=== PATIENT | female | born 1960 | race Caucasian/White ===

== ENCOUNTER → 2017-02-20 | Outpatient (CLI) | payer MEDICAID | LOC: FIMAGING 07:52 | PROVIDERS: ATTEND Internal Medicine | DX: M16.0 Bilateral primary osteoarthritis of hip (principal); M51.36 Other intervertebral disc degeneration, lumbar region; M48.061 Spinal stenosis, lumbar region without neurogenic claudication ==

== ENCOUNTER 2017-07-04 18:22 | Emergency (ER) | payer MEDICAID ==
[2017-07-04 19:09] VITALS: BP 153/99; PULSE 64; RESP 16; TEMP 97.9; O2SAT 95
[2017-07-04] MEDS ORDERED: ACETAMINOPHEN 325 MG TAB PO ONE (19:09)
--- NOTE | 2017-07-04 19:22 | EDPHY ---
H & P Time Seen by Provider: 07/04/17 18:57 HPI/ROS: This patient has known history of severe osteoarthritis her hips with her orthopedic physician, Dr. Velasco in [place] associated with [facility] recommends hip replacement surgery. She is trying to become more physically fit prior to hip surgery. 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 She had steroid shots just over 1 month ago to the hips with significant improvement in her pain and reports that she gets partial relief at nighttime from hydrocodone. She takes Advil during the day and had a 600 mg dose 4 hr prior to arrival. She reports minimal improvement from Advil and currently reports the pain is 7/10 in the right hip and mild to moderate in the left hip. Smoking Status: Never smoked Physical Exam: Physical Exam Vital signs are normal. General: Pleasant obese 56-year-old female No acute distress Eyes: Pupils equal and react to light. Extraocular motions are intact. Lungs: No respiratory distress. Cardiac: Brisk capillary refill is intact throughout. Pulses are 2+ and symmetric in the affected extremity. Skin: No rash or pallor. Extremities: Bilateral hip tenderness. No for shortening of either leg. She has pain with passive range of motion right more than left hip. Back: Mild lumbar paraspinous tenderness. No midline tenderness. Neuro: Alert and oriented x3. She maintains normal light touch sensory exam bilateral lower extremities and 5/5 strength in great toe dorsiflexion plantar flexion bilaterally with no sensorimotor deficits appreciated on exam. Initial differential diagnosis: Progression of osteoarthritis, sciatica, hip strain, pathologic fracture Constitutional: Initial Vital Signs Temperature (C) 36.6 C 07/04/17 19:05 Heart Rate 64 07/04/17 19:05 Respiratory Rate 16 07/04/17 19:05 Blood Pressure 153/99 H 07/04/17 19:05 O2 Sat (%) 95 07/04/17 19:05 O2 Delivery Mode Room Air Allergies/Adverse Reactions: No Known Allergies Allergy (Verified 07/04/17 19:08) Home Medications: Medication Instructions Recorded ESCITALOPRAM OXALATE [Lexapro] 20 mg PO 10/12/11 Losartan Potassium [Cozaar] 25 mg PO DAILY 09/20/12 Amlodipine Besylate 07/04/17 Hydrocodone-Acetamin 5-325 mg 07/04/17 Hydrocodone/APAP 5/325 [[place] 1 - 2 tab PO Q4PRN PRN #20 tab 07/04/17 5/325 (*)] Lidocaine [Lidoderm] 1 each TP Q12 PRN #20 adh..patch 07/04/17 Methocarbamol [Robaxin 750 mg (*)] 750 - 1,500 mg PO QID PRN #30 tab 07/04/17 MDM/Departure - MDM Diagnostics: Hip x-rays: Severe DJD with [id number] a degenerative changes by my interpretation Imaging Results: Imaging Impressions Hip X-Ray 07/04/17 19:09 Impression: Severe degenerative change in both hips. Imaging: I viewed and interpreted images myself Medications Given: Discontinued Medications Acetaminophen (Tylenol) 975 mg PO EDNOW ONE Stop: 07/04/17 19:10 Last Admin: 07/04/17 19:14 Dose: 975 mg ED Course/Re-evaluation: Tylenol p.o.. Patient has to drive so she declines any other analgesics at this time I counseled regarding her severe degenerative disease in her hip suggesting that she follow up soon with her orthopedic physician to plan for hip replacement. Will try her with Lidoderm patches, continue ibuprofen, add methocarbamol, continue hydrocodone/Tylenol. Answered all of her questions prior to discharge home. - Depart Disposition: Home, Routine, Self-Care Clinical Impression: Osteoarthritis of hips, bilateral Qualifiers: Osteoarthritis type: primary Qualified Code(s): M16.0 - Bilateral primary osteoarthritis of hip Condition: Good Instructions: Osteoarthritis (ED) Additional Instructions: Diagnosis: Osteoarthritis of the hip Plan: Continue ibuprofen-600 mg per 6 hr as needed Add Tylenol during the day, methocarbamol and Lidoderm patches. Continue your hydrocodone at night if needed. No driving, alcohol work on hydrocodone Try to lose weight as discussed. Follow up with the orthopedic physician a step for further evaluation Prescriptions: Hydrocodone/APAP 5/325 [[place] 5/325 (*)] 1 - 2 tab PO Q4PRN PRN #20 tab PRN Reason: Pain Lidocaine [Lidoderm] 1 each TP Q12 PRN #20 adh..patch PRN Reason: hip pain Methocarbamol [Robaxin 750 mg (*)] 750 - 1,500 mg PO QID PRN #30 tab PRN Reason: Muscle Spasms Referrals: DARA GILL [Other] - As per Instructions
== END 2017-07-04 19:52 | disposition home or self-care (01) ==
LOC: CED 18:22
DX: M16.0 Bilateral primary osteoarthritis of hip (principal)
CPT/HCPCS: 73502-PO

== ENCOUNTER 2017-09-20 18:23 | Emergency (ER) | payer MEDICAID ==
--- NOTE | 2017-09-20 18:39 | CPEKG ---
Heart Rate: 75 RR Interval: 800 P-R Interval: 132 QRSD Interval: 94 QT Interval: 364 QTC Interval: 407 P [place]: 29 QRS Davidson: 33 T Wave [place]: 23 EKG Severity - BORDERLINE ECG - EKG Impression: SINUS RHYTHM Electronically Signed By: Gilbert King 20-Sep-2017 21:33:04
[2017-09-20] MEDS ORDERED: ASPIRIN 81 MG CHEWABLE TAB PO ONE (18:48)
[2017-09-20] MEDS ORDERED: MAG HYDROX/AL HYDROX/SIMETH 30 ML UDCUP PO ONE (18:49)
[2017-09-20 19:04] LABS: PLATELET COUNT 319 10^3/uL (150-400)
[2017-09-20] MEDS ORDERED: IOPAMIDOL (ISOVUE 370) 100 ML BTL IV ONE (19:35)
--- NOTE | 2017-09-20 20:29 | CPEKG ---
Heart Rate: 71 RR Interval: 845 P-R Interval: 144 QRSD Interval: 96 QT Interval: 388 QTC Interval: 422 P [place]: 23 QRS [place]: 25 T Wave [place]: 20 EKG Severity - NORMAL ECG - EKG Impression: SINUS RHYTHM Electronically Signed By: Gilbert King 20-Sep-2017 21:32:29
--- NOTE | 2017-09-20 20:44 | EDPHY ---
H & P Stated Complaint: Cp off and on for 3 days Time Seen by Provider: 09/20/17 18:37 HPI/ROS: This patient has had intermittent chest pain for 3 days. She describes it as a mild ache, substernal location. She occasionally has arm pains left arm as well but notes no correlation between the timing of the arm pain and the chest pain. Peak intensity is 5/10, shortly prior to arrival she had 3/10 pain that has resolved shortly after arrival here tonight. She estimates longus duration of her pain is been 2 hr. She does not recall having this type of pain before. She admits that she is anxious currently about potential cardiac source of pain in part because her sister had an CO recently. She came in by private vehicle for evaluation of the symptoms. ROS: Constitutional: Mild fatigue. No fevers or other constitutional symptoms HEENT: No URI symptoms or other complaints new line neuro: Minimal headache similar to prior headaches in a bandlike distribution on off for the past 2 days but none currently. No numbness or tingling. Pulmonary: No shortness of breath. No cough. No pleuritic pain Cardiovascular: No heart palpitations. No leg swelling. GI: No belly pain. She does have heartburn and belching increased over the past few days. : No complaints integumentary: No diaphoresis or other complaints Endocrine: No complaints Complete review of symptoms otherwise negative Source: Patient Exam Limitations: No limitations - Personal History Tetanus Vaccine Date: 2011 - Medical/Surgical History PMH: Hypertension Normal cholesterol Hx Asthma: No Hx Chronic Respiratory Disease: No Hx Diabetes: No Hx Cardiac Disease: No Hx Renal Disease: No Hx Cirrhosis: No Hx Alcoholism: No Hx HIV/AIDS: No Hx Splenectomy or Spleen Trauma: No Other PMH: HTN, ANXIETY, ALLERGIES, C-SECT, FINGER ORIF, OSTEOARTHRITIS - Family History Significant Family History: Heart disease (Her 45-year-old sister had an CO recently) - Social History Smoking Status: Never smoked Alcohol Use: Rarely Drug Use: None - Physical Exam Exam: Vital signs normal exception of borderline hypertension initially at 140/86 and Slightly low O2 sat on room air of 94% General Appearance: Alert, no distress. Eyes: Pupils equal and round no pallor or injection. ENT, Mouth: Mucous membranes moist. Respiratory: There are no retractions, lungs are clear to auscultation. Cardiovascular: Regular rate and rhythm. No murmur gallop or rub. No peripheral edema. No JVD. Gastrointestinal: Abdomen is soft and nontender, no masses, bowel sounds normal. Neurological: GCS 15 with no focal deficits. Skin: Warm and dry, no rashes. Musculoskeletal: Neck is supple nontender. Extremities are symmetrical, full range of motion. Psychiatric: Mood and affect are normal DIFFERENTIAL DIAGNOSIS: After history and physical exam differential diagnosis was considered for myocardial ischemic disease, GERD, PE, pneumothorax, pneumonia Constitutional: Initial Vital Signs Temperature (C) 36.4 C 09/20/17 18:35 Heart Rate 83 09/20/17 18:35 Respiratory Rate 16 09/20/17 18:35 Blood Pressure 140/86 H 09/20/17 18:35 O2 Sat (%) 94 09/20/17 18:35 O2 Delivery Mode Room Air Allergies/Adverse Reactions: No Known Allergies Allergy (Verified 09/20/17 18:33) Home Medications: Medication Instructions Recorded ESCITALOPRAM OXALATE [Lexapro] 20 mg PO 10/12/11 Losartan Potassium [Cozaar] 25 mg PO DAILY 09/20/12 Amlodipine Besylate 07/04/17 Cetirizine HCl [Zyrtec] 10 mg PO 09/20/17 Pantoprazole Sodium [Protonix 40mg 40 mg PO DAILY #20 tab 09/20/17 (*)] Medical Decision Making - Diagnostics EKG Interpretation: 12 lead EKG performed shortly after arrival at 6:37 p.m. Indication chest pain Sinus rhythm 75 Intervals: P R of 132, QRS of 94, QTC of 392 [place]: P of 29, QRS of 33, T of 23 ST segments: Normal throughout Overall assessment sinus rhythm without acute ischemic abnormalities by my interpretation. This EKG is compared to a prior EKG dated 09/20/2012 and appreciate no interval change. Repeat EKG performed at 8:28 p.m. To evaluate for interval change shows sinus rhythm at 71. Intervals: Normal [place]: Normal ST segments: Normal Overall assessment normal EKG without interval change my interpretation. Please refer to trace master for complete read. Imaging Results: Imaging Impressions Chest/Thorax CTA 09/20/17 19:27 Impression: No evidence for pulmonary embolic disease. Results called to Dr. Gilbert King at 7:55 PM. General information for patients regarding this examination can be found at [email or web address]. If you have questions or comments about this report, please contact me at (hospital) or [phone] (cell). ED Course/Re-evaluation: IV, monitor, aspirin p. O. Maalox p. O. Patient's chest pain resolved prior to receiving the Maalox. She remained chest pain free for the duration of her time here in the emergency department A review of her historical findings the back of risk factors give her a heart score of 2-very low risk for acute ischemic cardiac disease. Patient labs revealed a normal CBC, normal metabolic panel and troponin however her D-dimer was mildly elevated 0.53. CT angio chest was then performed which ruled out pulmonary embolism or pulmonary pathology. Counseled regarding this. Given her background risk factors of family history and hypertension, recommend that she follow up with Dr. Kayce Alves as an outpatient and will treat her for GERD in the meantime with Protonix and Maalox. Patient understands the need to return emergency department should she develop any worsening of her symptoms are onset of new symptoms. I think the patient had symptoms attributable to GERD in the setting of her sister with recent CO was apprehensive and came in appropriately to eat be evaluated for her chest pain but has no red flag findings that would suggest acute cardiac ischemic disease, pulmonary embolism, pneumothorax or other acute cardiopulmonary pathology. - Data Points Laboratory Results: Laboratory Results 09/20/17 18:53 09/20/17 18:53 09/20/17 09/20/17 09/20/17 18:53 18:53 18:53 WBC 9.00 10^3/uL 10^3/uL (3.80-9.50) RBC 4.63 10^6/uL 10^6/uL (4.18-5.33) Hgb 14.3 g/dL g/dL (12.6-16.3) Hct 41.0 % % (38.0-47.0) MCV 88.6 fL fL (81.5-99.8) MCH 30.9 pg pg (27.9-34.1) MCHC 34.9 g/dL g/dL (32.4-36.7) RDW 13.6 % % (11.5-15.2) Plt Count 319 10^3/uL 10^3/uL (150-400) MPV 9.2 fL fL (8.7-11.7) Neut % (Auto) 67.9 % % (39.3-74.2) Lymph % (Auto) 25.4 % % (15.0-45.0) Keith % (Auto) 5.3 % % (4.5-13.0) Eos % (Auto) 0.4 % L % (0.6-7.6) Baso % (Auto) 0.7 % % (0.3-1.7) Nucleat RBC Rel Count 0.0 % % (0.0-0.2) Absolute Neuts (auto) 6.10 10^3/uL 10^3/uL (1.70-6.50) Absolute Lymphs (auto) 2.29 10^3/uL 10^3/uL (1.00-3.00) Absolute Monos (auto) 0.48 10^3/uL 10^3/uL (0.30-0.80) Absolute Eos (auto) 0.04 10^3/uL 10^3/uL (0.03-0.40) Absolute Basos (auto) 0.06 10^3/uL 10^3/uL (0.02-0.10) Absolute Nucleated RBC 0.00 10^3/uL 10^3/uL (0-0.01) Immature Gran % 0.3 % % (0.0-1.1) Immature Gran # 0.03 10^3/uL 10^3/uL (0.00-0.10) D-Dimer 0.53 ug/mLFEU H ug/mLFEU (0.00-0.50) Sodium 133 mEq/L L mEq/L (135-145) Potassium 4.1 mEq/L mEq/L (3.3-5.0) Chloride 98 mEq/L mEq/L (97-110) Carbon Dioxide 23 mEq/l mEq/l (22-31) Anion Gap 12 mEq/L mEq/L (8-16) BUN 9 mg/dL mg/dL (7-23) Creatinine 0.5 mg/dL L mg/dL (0.6-1.0) Estimated GFR > 60 Glucose 102 mg/dL H mg/dL (70-100) Calcium 9.7 mg/dL mg/dL (8.5-10.4) Troponin I < 0.012 ng/mL ng/mL (0.000-0.034) Medications Given: Discontinued Medications Al Hydroxide/Mg Hydroxide (Maalox Susp) 30 ml PO EDNOW ONE Stop: 09/20/17 18:50 Last Admin: 09/20/17 19:06 Dose: 30 ml Aspirin (Aspirin) 324 mg PO EDNOW ONE Stop: 09/20/17 18:49 Last Admin: 09/20/17 19:06 Dose: 324 mg Departure - Departure Disposition: Home, Routine, Self-Care Clinical Impression: Chest pain Qualifiers: Chest pain type: unspecified Qualified Code(s): R07.9 - Chest pain, unspecified Condition: Good Instructions: Chest Pain (ED) Additional Instructions: Diagnosis: Chest pain Your EKG, heart enzymes are normal tonight. He had a normal CT angio of her chest as well with no evidence of blood clotting. You may have acid reflux causing her symptoms. However, he warranted follow up with polysomnography tech as an outpatient given her family history of sister with a heart attack at a young age. Plan: Maalox for discomfort if needed Restart joint Protonix-an acid darlyn tonight as well. Continue this daily. Call your primary care physician for a follow-up appoint for recheck. Also call Dr. Alves to arrange follow-up appointment for further evaluation of chest pains Return emergency department for any significant worsening despite the treatment plan. Referrals: Yumiko Pena MD [Primary Care Provider] - As per Instructions Kayce Alves MD [Medical Doctor] - As per Instructions Prescriptions: Pantoprazole Sodium [Protonix 40mg (*)] 40 mg PO DAILY #20 tab
[2017-09-20 20:59] VITALS: BP 144/77
== END 2017-09-20 20:58 | disposition home or self-care (01) ==
LOC: CED 18:23
DX: R07.9 Chest pain, unspecified (principal); I10 Essential (primary) hypertension
CPT/HCPCS: 71275-PO; 80048-PO; 84484-PO; 85025-PO; 85378-PO; Q9967

== ENCOUNTER 2018-03-31 15:27 | Inpatient (IN) | payer MEDICAID ==
[2018-03-31] MEDS ORDERED: NS 1,000 ML IV ONE (15:42)
[2018-03-31] MEDS ORDERED: ASPIRIN 81 MG CHEWABLE TAB PO ONE (15:51)
[2018-03-31] MEDS ORDERED: ONDANSETRON 4 MG/2 ML VIAL IVP ONE (15:52)
[2018-03-31] MEDS ORDERED: NITROGLYCERIN 0.4 MG BTL SL PRN (16:02)
[2018-03-31] MEDS: POTASSIUM Cl (KCl) 100 ML IV SCH ×3 (16:49→19:18)
[2018-03-31] MEDS ORDERED: ACETAMINOPHEN 500 MG TAB PO ONE (16:59)
--- NOTE | 2018-03-31 17:02 | EDPHY ---
H & P Stated Complaint: SOB for 1.5 weeks, generalized abd discomfort, CRUZ Time Seen by Provider: 03/31/18 15:42 HPI/ROS: This patient reports a chief complaint of fatigue and shortness of breath. She explains that starting about 10 days ago she developed a dry intermittent cough , is vague tightness in her chest that slightly worsens with a deep breath, dyspnea and fatigue. She waited to come in because she presumed that she would start improving but in fact her symptoms have steadily and gradually worsened prompting her visit today. She drove herself here by private vehicle. She notes that the dyspnea and chest tightness worsened a bit with exertion-going up stairs. No other exacerbating factors. Currently shortly after arrival she described 4/10 chest tightness when she takes a deeper breath. She describes anorexia in addition and has lingering nausea most of the time over the 10 day course. ROS: Constitutional: No fevers or chills. She complains of generalized fatigue. She describes poor sleep is well she that she attributes to the chest tightness and chronic hip pain. She states the dyspnea also bothers her sleep HEENT: She describes mild nasal congestion. Neuro: She has a 4/10 to 7/10 frontal headache similar to prior headaches-achy in nature. No confusion. No focal numbness tingling weakness. Pulmonary: No hemoptysis. No sputum production Cardiovascular: She denies any lightheadedness. She has no lower extremity swelling or calf pain. GI: She reports anorexia. She has been drinking fluids however. She reports having bowel movements less frequently than usual over the past week but still having bowel movements. : No dysuria frequency urgency. No vaginal discharge. No flank pain. Musculoskeletal: She has moderate chronic hip pain bilaterally from osteoarthritis that is unchanged. She takes ibuprofen for this with partial relief. She also partial relief of her headache from ibuprofen last dose of ibuprofen was 4 hr prior to arrival -600 mg 10 point review of symptoms is performed and otherwise negative with exception of pertinent positives and negatives listed in HPI and ROS Source: Patient Exam Limitations: No limitations - Personal History Tetanus Vaccine Date: 2011 - Medical/Surgical History Hx Asthma: No Hx Chronic Respiratory Disease: No Hx Diabetes: No Hx Cardiac Disease: No Hx Renal Disease: No Hx Cirrhosis: No Hx Alcoholism: No Hx HIV/AIDS: No Hx Splenectomy or Spleen Trauma: No Other PMH: HTN, ANXIETY, seaonal ALLERGIES, C-SECT, FINGER ORIF, OSTEOARTHRITIS - Family History Significant Family History: Heart disease (Patient's sister had an DE at age 45) - Social History Smoking Status: Never smoked Alcohol Use: Other (She usually has 1 2 glasses of white wine a night but has not had any alcohol over the past week due to feeling poorly) Drug Use: Marijuana (The patient admits using a marijuana vaporizer pen at bedtime to try to help with sleep over the course of the past 3 weeks but has not used over the past week due to feeling poorly.) - Physical Exam Exam: Vital signs notable for tachypnea of 22 and hypoxia to 80%. General Appearance: Alert, no distress. Eyes: Pupils equal and round no pallor or injection. ENT, Mouth: Mucous membranes dry. Respiratory: Left-sided rales detectable anteriorly Cardiovascular: Regular rate and rhythm. No murmur gallop rub. No peripheral edema. No calf swelling or tenderness Gastrointestinal: Abdomen is soft and nontender, no masses, bowel sounds normal. Neurological: GCS of 15 Skin: Warm and dry, no rashes. Musculoskeletal: Neck is supple nontender. Extremities are symmetrical, full range of motion. Psychiatric: Mood and affect are normal DIFFERENTIAL DIAGNOSIS: After history and physical exam differential diagnosis was considered for pulmonary embolism, pneumonia, myocardial ischemic disease, viral pneumonitis, metabolic disarray Constitutional: Initial Vital Signs Temperature (C) 36.6 C 03/31/18 15:32 Heart Rate 84 03/31/18 15:32 Respiratory Rate 26 H 03/31/18 15:32 Blood Pressure 137/72 H 03/31/18 15:32 O2 Sat (%) 88 L 03/31/18 15:32 O2 Delivery Mode Nasal Cannula O2 (L/minute) 2 Allergies/Adverse Reactions: No Known Allergies Allergy (Verified 03/31/18 15:39) Home Medications: Medication Instructions Recorded ESCITALOPRAM OXALATE [Lexapro] 20 mg PO 10/12/11 Losartan Potassium [Cozaar] 25 mg PO DAILY 09/20/12 Amlodipine Besylate 07/04/17 Cetirizine HCl [Zyrtec] 10 mg PO 09/20/17 Medical Decision Making - Diagnostics EKG Interpretation: 12 lead EKG performed shortly after arrival indication chest tightness rule out coronary syndrome 12 lead EKG performed at 3:38 p.m. Reveals sinus rhythm at 78 Intervals: Normal throughout [place]: P of 16, QRS of 11, T of -20 ST segments: Patient has T-wave inversions in lead V2 and V3 and lateral ST depression V4 through V5 of 2 mm Overall assessment sinus rhythm with LVH with repolarization abnormalities verses heart strain, versus ischemia or electrolyte abnormality Imaging Results: Imaging Impressions Chest X-Ray 03/31/18 16:00 Impression: Left upper lobe pneumonia. Aspiration? Chest/Thorax CTA 03/31/18 17:05 Impression: 1. No evidence of pulmonary emboli using CT protocol although there is suboptimal enhancement of the pulmonary arterial system secondary to increased cardiac output and possible Valsalva. 2. Moderate consolidation/pneumonia left upper lobe and lingula. 3. Compressive atelectatic change suspected at the right lung base. There may be superimposed patchy consolidation as well. Findings discussed with Gilbert King M.D. at 18:03 hour, 03/31/2018. Two view chest x-ray: Left sided infiltrate, right-sided atelectasis, possible effusion by my interpretation Imaging: Discussed imaging studies w/ call center support consultant Radiologist, I viewed and interpreted images myself (Plain x-rays) ED Course/Re-evaluation: IV, monitor, aspirin 324 chewed After review of chest x-ray patient is treated with a g of ceftriaxone for pneumonia Zithromax 500 mg p.o. In addition [place] review [place] [id number], potassium of 2.2 confirmed by i-STAT potassium also of 2.2, normal troponin, elevated D-dimer, normal venous lactate Patient started on IV potassium replacement for hypokalemia CT angio chest is negative for any significant pulmonary embolism per Dr. Black. Findings are consistent with pneumonia including some reactive lymph nodes. Discussion: Patient with pneumonia and hypoxia warranting admission. I counseled patient regarding this. She also has significant hypokalemia likely from aggressive hydration with water and poor appetite. I think that her subtle T-wave abnormalities on her EKG are attributable to her hypokalemia. Her chest tightness that she ride with resolved without intervention shortly after arrival and she denied any further chest pain while in the emergency department. Presentation is consistent with sepsis without severe sepsis and she remained stable while in the emergency department. I spoke with Dr. Jaden Purcell, hospitalist at [facility] accepts the patient for transfer to PCU bed The patient remains stable for the duration of her emergency department course on nasal cannula supplemental O2. She received 10 mEq of potassium IV and 20 mEq p.o. Answered all her questions prior to transfer via ALS to [facility] PCU - Data Points Laboratory Results: 03/31/18 03/31/18 03/31/18 16:50 16:28 15:55 POC Hgb 14.6 gm/dL gm/dL (12.6-16.3) POC Hct 43 % % (38-47) PT INR APTT POC Sodium 135 mEq/L mEq/L (135-145) POC Potassium 2.2 mEq/L L* mEq/L (3.3-5.0) POC Chloride 103 mEq/L mEq/L (97-110) POC Total CO2 POC BUN 23 mg/dL mg/dL (7-23) POC Creatinine 0.7 mg/dL mg/dL (0.6-1.0) POC Glucose 97 mg/dL mg/dL (70-100) POC Lactic Acid Jony 1.1 mmol/L mmol/L (0.7-2.1) POC Calcium POC Total Bilirubin POC AST POC ALT POC Alk Phosphatase POC Troponin I 0.01 ng/mL ng/mL (0.00-0.08) POC Total Protein POC Albumin 03/31/18 03/31/18 15:53 15:45 POC Hgb POC Hct PT Pending INR Pending APTT Pending POC Sodium 132 mEq/L L mEq/L (135-145) POC Potassium 2.2 mEq/L L* mEq/L (3.3-5.0) POC Chloride 102.0 mEq/L mEq/L (97-110) POC Total CO2 17 mEq/L L mEq/L (22-31) POC BUN 21 mg/dL mg/dL (7-23) POC Creatinine 0.8 mg/dL mg/dL (0.6-1.0) POC Glucose 110 mg/dL H mg/dL (70-100) POC Lactic Acid Jony POC Calcium 9.2 mg/dL mg/dL (8.5-10.4) POC Total Bilirubin 0.5 mg/dL mg/dL (0.1-1.4) POC AST 50 IU/L H IU/L (14-46) POC ALT 42 IU/L IU/L (9-52) POC Alk Phosphatase 132 IU/L H IU/L (38-126) POC Troponin I POC Total Protein 7.7 g/dL g/dL (6.3-8.2) POC Albumin 3.0 g/dL L g/dL (3.5-5.0) Medications Given: Potassium Chloride (Potassium Cl 10 Meq (Premix)) 100 mls @ 100 mls/hr IV Q1H EMMY Stop: 03/31/18 19:59 Last Admin: 03/31/18 19:18 Dose: Not Given Discontinued Medications Acetaminophen (Tylenol) 1,000 mg PO EDNOW ONE Stop: 03/31/18 17:00 Last Admin: 03/31/18 17:09 Dose: 1,000 mg Aspirin (Aspirin) 324 mg PO EDNOW ONE Stop: 03/31/18 15:52 Last Admin: 03/31/18 16:04 Dose: 324 mg Azithromycin (Zithromax) 500 mg PO EDNOW ONE PRN Reason: Protocol Stop: 03/31/18 17:54 Last Admin: 03/31/18 18:16 Dose: 500 mg Sodium Chloride (Ns) 1,000 mls @ 0 mls/hr IV EDNOW ONE; Wide Open PRN Reason: Protocol Stop: 03/31/18 15:43 Last Admin: 03/31/18 15:51 Dose: 1,000 mls Ceftriaxone Sodium/Dextrose (Rocephin 1 Gm (Premix)) 50 mls @ 100 mls/hr IV EDNOW ONE PRN Reason: Protocol Stop: 03/31/18 17:04 Last Admin: 03/31/18 16:59 Dose: 50 mls Ondansetron HCl (Zofran) 4 mg IVP EDNOW ONE Stop: 03/31/18 15:53 Last Admin: 03/31/18 16:31 Dose: 4 mg Potassium Chloride (Potassium Chloride Oral Liquid) 20 meq PO EDNOW ONE Stop: 03/31/18 17:58 Last Admin: 03/31/18 18:15 Dose: 20 meq Point of Care Test Results: CBC CBC Collection Date 03/31/18 CBC Collection Time 15:45 WBC 17.4 RBC 4.56 HGB 14.0 HCT 38.5 PLT 419 Neut # 14.9 Neut 86.0 LYMPH # 1.6 LYMPH 9.0 Other WBC # 0.9 Other WBC 5.0 MCV 84.4 Chemistry 03/31/18 03/31/18 03/31/18 16:28 15:55 15:53 POC Sodium 135 mEq/L mEq/L 132 mEq/L L mEq/L (135-145) (135-145) POC Potassium 2.2 mEq/L L* mEq/L 2.2 mEq/L L* mEq/L (3.3-5.0) (3.3-5.0) POC Chloride 103 mEq/L mEq/L 102.0 mEq/L mEq/L (97-110) (97-110) POC Total CO2 17 mEq/L L mEq/L (22-31) POC BUN 23 mg/dL mg/dL 21 mg/dL mg/dL (7-23) (7-23) POC Creatinine 0.7 mg/dL mg/dL 0.8 mg/dL mg/dL (0.6-1.0) (0.6-1.0) POC Glucose 97 mg/dL mg/dL 110 mg/dL H mg/dL (70-100) (70-100) POC Calcium 9.2 mg/dL mg/dL (8.5-10.4) POC Total Bilirubin 0.5 mg/dL mg/dL (0.1-1.4) POC AST 50 IU/L H IU/L (14-46) POC ALT 42 IU/L IU/L (9-52) POC Alk Phosphatase 132 IU/L H IU/L (38-126) POC Troponin I 0.01 ng/mL ng/mL (0.00-0.08) POC Total Protein 7.7 g/dL g/dL (6.3-8.2) POC Albumin 3.0 g/dL L g/dL (3.5-5.0) Blood Gas/Lactic Acid-Venous 03/31/18 16:50 POC Lactic Acid Jony 1.1 mmol/L mmol/L (0.7-2.1) ISTAT H&H 03/31/18 16:28 POC Hgb 14.6 gm/dL gm/dL (12.6-16.3) POC Hct 43 % % (38-47) D-Dimer D-Dimer Collection Date 03/31/18 D-Dimer Collection Time 15:45 D-Dimer (ng/ml) 3910 Influenza PCR Flu Nasal Swab Collection Date 03/31/18 Flu Nasal Swab Collection Time 16:45 Influenza A Result Not Detected Influenza B Result Not Detected Departure - Departure Disposition: [facility] Inpatient Acute Clinical Impression: Hypoxia, Hypokalemia Pneumonia Qualifiers: Pneumonia type: due to unspecified organism Laterality: left Lung location: upper lobe of lung Qualified Code(s): J18.1 - Lobar pneumonia, unspecified organism Condition: Fair
[2018-03-31] MEDS ORDERED: IOPAMIDOL (ISOVUE 370) 100 ML BTL IV ONE (17:12)
[2018-03-31] MEDS ORDERED: AZITHROMYCIN 250 MG TAB PO ONE (17:53)
[2018-03-31] MEDS ORDERED: POTASSIUM CL 20 MEQ/15 ML UDCUP PO ONE (17:57)
[2018-03-31 19:41] LABS: INR 1.1 (0.83-1.16); PROTIME(PATIENT) 14.4 SEC (12.0-15.0)
[2018-03-31] MEDS ORDERED: PROTOCOL MAGNESIUM 1 DOSE IV PRN (20:38)
[2018-03-31] MEDS ORDERED: PROTOCOL POTASSIUM 1 DOSE MISC PRN (20:38)
[2018-03-31] MEDS ORDERED: CETIRIZINE 10 MG TAB PO PRN (21:33)
[2018-03-31] MEDS ORDERED: IPRATROPIUM/ALBUTEROL 3 ML DEYVIAL IH PRN (21:39)
[2018-03-31] MEDS ORDERED: ALBUTEROL 3 ML DEYVIAL IH PRN (21:43)
[2018-03-31] MEDS ORDERED: ONDANSETRON 4 MG/2 ML VIAL IVP PRN (21:43)
[2018-03-31] MEDS ORDERED: ONDANSETRON DISINTEGRATING 4 MG TAB PO PRN (21:43)
[2018-03-31] MEDS: POTASSIUM CL 20 MEQ PKT PO SCH (22:02)
[2018-03-31] MEDS: NYSTATIN POWDER 15 GM BTL TP SCH (22:02)
--- NOTE | 2018-04-01 01:00 | GHP ---
DATE OF ADMISSION: 03/31/2018 HISTORY OF PRESENT ILLNESS: The patient is a 57-year-old female with a history of hypertension, obes ity as well as orthopedic problems who presents to urgent care after about 10 days of feeling sick. She has felt weak. She has had a cough. It is nonproductive. There has been some subjective fevers . She has been eating and drinking poorly. She has been spending much of her time in bed. She has had no nausea, no vomiting, no diarrhea. She has not been coughing up blood. She denies sick contac ts. She does take a blood pressure medicine that includes hydrochlorothiazide. REVIEW OF SYSTEMS: A complete 10-point review of systems conducted and negative except as noted in t he HPI. PAST MEDICAL HISTORY: Hypertension, obesity, anxiety, , finger ORIF. ALLERGIES: No known drug allergies. HOME MEDICATIONS: Amlodipine, losartan/hydrochlorothiazide, ibuprofen, cetirizine. SOCIAL HISTORY: She lives in [place]. Does not drink much alcohol. It sounds like she used to drin k more in the past. FAMILY HISTORY: Reviewed and unremarkable. PHYSICAL EXAMINATION: VITAL SIGNS: Temp 36.6, blood pressure 137/72, pulse 84, breathing 26 times a minute, 88% on room air, 92% on 2 L. GENERAL: No acute distress. HEENT: Sclera anicteric. Oroph arynx is clear. Mucous membranes are dry. NECK: Supple without lymphadenopathy or JVD. LUNGS: Cl ear on the right. There are diffuse crackles on the left throughout the entire lung field. HEART: S1, S2. Not tachycardic. ABDOMEN: Soft, nontender, nondistended. LOWER EXTREMITIES: Without senthil a. Calves nontender. SKIN: Significant fungal irritation in the intertriginous areas under the rios nus of her abdomen, worse on the right. NEUROLOGIC: Nonfocal. LABORATORY DATA: Sodium 132, potassium 2.2, chloride 102, bicarb 17, BUN 21, creatinine 0.8, glucose 110. LFTs show modestly elevated AST at 150, alkaline phosphatase 132. Troponin 0.01. Coags leslie l. There is no CBC. Chest x-ray interpreted by me shows left-sided pneumonia. Chest CTA shows marked infiltrate in the e ntire left upper lobe. There is no pulmonary embolism. I have discussed the case with Dr. Gilbert perry of [facility]. ASSESSMENT AND PLAN: A 57-year-old female with community-acquired pneumonia, hypokalemia, and intert riginous fungal infection. 1. Community-acquired pneumonia. The patient has been sick for about a week. She has modestly elev ated LFTs and dense left lower lobe infiltrate. Ceftriaxone and azithromycin have been ordered. We will continue this. We will provide her DuoNebs and supplemental oxygen. 2. Acute hypoxemic respiratory failure secondary to airspace disease. 3. Intertriginous fungal infection. Nystatin powder as well as wound care consult. I considered so me oral fluconazole; however, given the azithromycin therapy and hypokalemia, we will hold off on ano ther QT-prolonging agent. 4. Hypokalemia. This is likely poor p.o. intake in the setting of diuretic therapy. I will hold th e diuretic, give her 20 of potassium daily and start her on the potassium protocol as well as the mag nesium protocol. 5. Prophylaxis. Pharmacologic proximal is indicated. Low molecular weight heparin. 6. Disposition. Inpatient. /[id number]/MODL
[2018-04-01 04:19] LABS: PLATELET COUNT 429 10^3/uL (150-400)
[2018-04-01] MEDS: IBUPROFEN 600 MG TAB PO PRN ×3 (05:40→15:38)
[2018-04-01] MEDS ORDERED: POTASSIUM CL 10 MEQ TAB PO ONE ×2 (08:18→20:00)
[2018-04-01] MEDS: POTASSIUM CL 20 MEQ PKT PO SCH (08:26)
[2018-04-01] MEDS: ESCITALOPRAM OXALATE 10 MG TAB PO SCH (08:26)
[2018-04-01] MEDS: amLODIPine BESYLATE 5 MG TAB PO SCH (08:26)
[2018-04-01] MEDS: AZITHROMYCIN IV 500 MG in NS 250 ML IV SCH (08:26)
[2018-04-01] MEDS: ENOXAPARIN 40 MG/0.4 ML SYR SC SCH (08:26)
[2018-04-01] MEDS: NYSTATIN POWDER 15 GM BTL TP SCH ×3 (08:26→21:10)
[2018-04-01] MEDS: ACETAMINOPHEN 325 MG TAB PO PRN (08:49)
--- NOTE | 2018-04-01 10:07 | PDMN ---
Medical Necessity Medical necessity: [facility] M282 CAP A-2days: 57 yo w/ CAP and hypokalemia. Pt is in acute hypoxemic resp fx w/ RR 26 and w/ sat 88% RA, O2 started. K is 2.2, K replacement started. IV antibx started, BC pending. Meets IP admit criteria for hypoxemia, tachypnea, severe electrolyte imbalance. Hx HTN, obesity, anxiety
--- NOTE | 2018-04-01 10:33 | HOSPPROG ---
Hospitalist Progress Note Assessment/Plan: # CAP - cont rocephin and azith, nebs # acute hypoxic resp failure - hypoxic and increased RR on admission - d/t pna # intertriginous candidiasis - cont nystatin powder # hypoK d/t porr PO intake - cont repletion # htn - cont norvasc, holding hctz and losartan # transaminitis - suspect chronic, possible hyposteatosis # back OA - start tramadol # dvt ppx - lovenox Subjective: cc: pna; still very weak; no productive cough; ate well this am; nausea better Objective: Vital Signs Temp Pulse Resp BP Pulse Ox 37.0 C 74 18 115/74 94 04/01/18 08:00 04/01/18 08:00 04/01/18 08:00 04/01/18 08:00 04/01/18 08:00 Laboratory Results 04/01/18 03:32 04/01/18 03:32 03/31/18 04/01/18 04/02/18 05:59 05:59 05:59 Intake Total 1950 Output Total 400 Balance 1550 PT 14.4 SEC (12.0-15.0) 03/31/18 15:45 INR 1.10 (0.83-1.16) 03/31/18 15:45 chart reviewed CXR personally reviewed CT reviewed - Physical Exam Constitutional: uncomfortable Cardiovascular: regular rate and rhythym, no murmur, rub, or gallop Respiratory: no respiratory distress, inspiratory crackles ([place]), No reduced air movement, No bronchial breath sounds, No aegophony Gastrointestinal: normoactive bowel sounds, soft, non-tender abdomen, no palpable masses ICD10 Worksheet Patient Problems: Problems Problem Status Onset Hypokalemia Acute Hypoxia Acute Pneumonia Acute
[2018-04-01] MEDS: traMADol 50 MG TAB PO PRN (21:38)
[2018-04-02 04:28] LABS: PLATELET COUNT 436 10^3/uL (150-400)
[2018-04-02] MEDS ORDERED: POTASSIUM CL 10 MEQ TAB PO ONE (06:59)
[2018-04-02] MEDS: IBUPROFEN 600 MG TAB PO PRN ×3 (08:13→20:45)
[2018-04-02] MEDS: ESCITALOPRAM OXALATE 10 MG TAB PO SCH (08:13)
[2018-04-02] MEDS: ENOXAPARIN 40 MG/0.4 ML SYR SC SCH (08:14)
[2018-04-02] MEDS: NYSTATIN POWDER 15 GM BTL TP SCH ×3 (08:15→20:46)
[2018-04-02] MEDS: POTASSIUM CL 20 MEQ PKT PO SCH (09:32)
[2018-04-02] MEDS: AZITHROMYCIN IV 500 MG in NS 250 ML IV SCH (09:32)
[2018-04-02] MEDS: amLODIPine BESYLATE 5 MG TAB PO SCH (09:38)
[2018-04-02] MEDS: ACETAMINOPHEN 325 MG TAB PO PRN ×2 (11:27→18:16)
--- NOTE | 2018-04-02 20:07 | HOSPPROG ---
Hospitalist Progress Note Assessment/Plan: # CAP - cont rocephin and azith, nebs # acute hypoxic resp failure - improved on RA. - d/t pna # intertriginous candidiasis - cont nystatin powder # hypoK d/t porr PO intake - cont repletion # htn - cont norvasc, holding hctz and losartan # transaminitis - suspect chronic, possible hyposteatosis # back OA - tramadol improving sx. #urinary incontinence - hx of stress incontinence. Worsened with mobility and overnight while at rest. Patient is still significantly deconditioned. Will monitor closely - kegel exercises. - pt denies any dysuria/hematuria. on rocephin for pna. Consider UA if symptoms do not improve or patient develops additional symptoms consistent with a UTI but at this time likely due to deconditioning and generalized muscle weakness which is likely also affecting her pelvic muscles. # dvt ppx - lovenox Subjective: cc: pna. HPI - patient reports that she is feeling a little bit stronger. She is concerned about some urinary incontinence. Endorses a history of stress incontinence but now is exacerbated by ambulation and also occurs while sleeping. She has been using an external female urinal which has been helping to keep her dry. She otherwise denies any subjective fevers or chills. No significant coughing. She reports shortness of breath is much improved and she is using the incentive spirometer frequently. Objective: Vital Signs Temp Pulse Resp BP Pulse Ox 36.8 C 83 16 112/79 93 04/02/18 16:19 04/02/18 16:19 04/02/18 16:19 04/02/18 16:19 04/02/18 16:19 Microbiology 04/01/18 11:35 Respiratory Panel (PCR) - Final Nasal, Sinus - Swab No Organism Detected By Pcr Laboratory Results 04/02/18 04:10 04/02/18 17:39 04/01/18 04/02/18 04/03/18 05:59 05:59 05:59 Intake Total 1950 850 Output Total 400 700 Balance 1550 150 PT 14.4 SEC (12.0-15.0) 03/31/18 15:45 INR 1.10 (0.83-1.16) 03/31/18 15:45 - Physical Exam Constitutional: no apparent distress, chronically ill appearing, obese, other ( NAD. Patient resting comfortably in bed on her side. Complains of some back pain with movement.) Eyes: EOMI (Grossly intact), No scleral injection Ears, Nose, Mouth, Throat: moist mucous membranes, other (No nasal discharge.), No poor dentition Cardiovascular: regular rate and rhythym, no murmur, rub, or gallop, edema ( Trace lower extremity), other (Slightly distant heart sounds.) Respiratory: no respiratory distress, reduced air movement (Right lung base), inspiratory crackles (Right lung base), other (Decreased inspiratory effort.), No respiratory distress Gastrointestinal: normoactive bowel sounds, soft, non-tender abdomen, no palpable masses, No distension Genitourinary: no bladder tenderness, No enrique in urethra Skin: warm, rash (Below the pannus there is an area of erythema) Musculoskeletal: generalized weakness, other (Able to move extremities. Patient is able to roll on her side but she is unable to sit up independently.) Neurologic: other (Grossly nonfocal moves all extremities.), No facial droop Psychiatric: interacting appropriately, not anxious, not encephalopathic, thought process linear ICD10 Worksheet Patient Problems: Problems Problem Status Onset Hypokalemia Acute Hypoxia Acute Pneumonia Acute
[2018-04-02] MEDS: traMADol 50 MG TAB PO PRN (20:46)
[2018-04-03] MEDS: ACETAMINOPHEN 325 MG TAB PO PRN ×2 (02:04→17:01)
[2018-04-03 04:56] LABS: PLATELET COUNT 443 10^3/uL (150-400)
[2018-04-03] MEDS: IBUPROFEN 600 MG TAB PO PRN ×3 (05:36→19:58)
[2018-04-03] MEDS ORDERED: POTASSIUM CL 10 MEQ TAB PO ONE (07:33)
[2018-04-03] MEDS: amLODIPine BESYLATE 5 MG TAB PO SCH (08:28)
[2018-04-03] MEDS: ESCITALOPRAM OXALATE 10 MG TAB PO SCH (08:28)
[2018-04-03] MEDS: POTASSIUM CL 20 MEQ PKT PO SCH (08:29)
[2018-04-03] MEDS: ENOXAPARIN 40 MG/0.4 ML SYR SC SCH (08:30)
[2018-04-03] MEDS: NYSTATIN POWDER 15 GM BTL TP SCH ×3 (08:41→22:42)
[2018-04-03] MEDS: AZITHROMYCIN IV 500 MG in NS 250 ML IV SCH (09:37)
--- NOTE | 2018-04-03 10:33 | HOSPPROG ---
Hospitalist Progress Note Assessment/Plan: [facility] Patient Name: JADA GABRIEL Rpt#: [id number] Unit Number: [id number] Attending/ER Physician: Branden Purcell MD Patient Type: ADM IN Adm Date/Source: 03/31/18 EMR Discharge Date: Primary Carrier: [facility] [facility] IP Jada is a 57 y/o female w hx of htn, obesity who initially presented to urgent care after feeling poorly x 10 days. She felt weak, had some subjective fevers. First encounter, chart reviewed. # CAP - cont Rocephin and azithromycin, nebs (03/31) # acute hypoxic resp failure -on room air # intertriginous candidiasis - cont nystatin powder # hypoK -replacement # htn - cont Norvasc, holding hctz and losartan # transaminitis - suspect chronic, possible hyposteatosis # back OA - tramadol improving sx. #urinary incontinence -increase frequency and urgency -check a ua #lab abnormalities -curb-sided hematology, she has Dohle bodies, echinocytes; recommendation is to get repeat labs in OP setting, being acutely ill may cause these #morbid obesity -BMI of 37.9 # dvt ppx - lovenox #plan: reviewed her care w PT and CM; recommendation is a SNF due to significant weakness in her upper body. Only able to do one step today. Will cont close monitoring, f/u with her ua. Subjective: Allie is feeling better overall but having increase frequency w urination. Objective: Vital Signs Temp Pulse Resp BP Pulse Ox 36.5 C 71 16 122/83 H 92 04/03/18 07:30 04/03/18 07:30 04/03/18 07:30 04/03/18 07:30 04/03/18 07:30 Laboratory Results 04/03/18 04:22 04/03/18 04:22 04/02/18 04/03/18 04/04/18 05:59 05:59 05:59 Intake Total 850 700 250 Output Total 700 350 200 Balance 150 350 50 PT 14.4 SEC (12.0-15.0) 03/31/18 15:45 INR 1.10 (0.83-1.16) 03/31/18 15:45 - Physical Exam Constitutional: no apparent distress, appears nourished, not in pain, obese Eyes: PERRL Ears, Nose, Mouth, Throat: hearing normal Cardiovascular: regular rate and rhythym Respiratory: no respiratory distress, clear to auscultation Skin: warm Musculoskeletal: generalized weakness Neurologic: AAOx3 Psychiatric: interacting appropriately ICD10 Worksheet Patient Problems: Problems Problem Status Onset Hypokalemia Acute Hypoxia Acute Pneumonia Acute
--- NOTE | 2018-04-03 13:45 | ASMTCMCOM ---
CM Note CM Note Notes: Chart reviewed. Per PT recommending SNF. Patient is medicaid and will require ULTC 100, discussed with Kavitha Fried NP. Patient has diagnosis of PNA and hopefully will not require SNF, Ensouraged ambulation today. CM to follow for needs. Plan: TBD Date Signed: 04/03/2018 01:44 PM Electronically Signed By:Niharika Lainez RN
[2018-04-03] MEDS: traMADol 50 MG TAB PO PRN (22:37)
[2018-04-04] MEDS: IBUPROFEN 600 MG TAB PO PRN ×4 (08:17→19:44)
--- NOTE | 2018-04-04 09:19 | HOSPPROG ---
Hospitalist Progress Note Assessment/Plan: 57 yo female w hx of htn, obesity presented with weakness and subjective fevers found to have pneumonia. This is my first encounter with patient, chart reviewed. 1. Legionella community acquired pneumonia: Mild. No extrapulm manifestations - Continue azithromycin, day 4/7 2. Acute hypoxemic resp failure: resolved 3. Deconditioning: Acute on chronic, related to morbid obesity and pneumonia - PT/OT recommending inpt rehab, will place consult - If not accepted to above, pt agreeable to SNF 4. Intertriginous candidiasis: nystatin powder 5. Hypokalemia: Lytes ok, continue monitoring 6. H/o transaminitis: LFTs ok here. Suspect steatosis. 7. Urinary incontinence: New issue. UA clean. Likely pelvic floor weakness r/t infection. 8. Osteoarthritis: Back and hips. Tramadol has significantly helped. 9. HTN: Cont amlodipine, holding hctz/losartan. BP ok 10. Heme lab abnormalities: Likely due to acute illness, needs repeat labs in OP setting. VTE ppx: LMWH Code: full Dispo: Remain inpatient. Plan for inpt rehab (if accepted) vs SNF. Subjective: Breathing ok. No cough or fevers. Pain better and sleeping well with tramadol. Objective: Vital Signs Temp Pulse Resp BP Pulse Ox 36.8 C 72 18 133/97 H 92 04/04/18 07:41 04/04/18 07:41 04/04/18 07:41 04/04/18 07:41 04/04/18 07:41 Laboratory Results 04/03/18 04:22 04/04/18 04:04 04/03/18 04/04/18 04/05/18 05:59 05:59 05:59 Intake Total 700 1900 Output Total 350 320 Balance 350 1580 PT 14.4 SEC (12.0-15.0) 03/31/18 15:45 INR 1.10 (0.83-1.16) 03/31/18 15:45 - Physical Exam Constitutional: no apparent distress, appears nourished, not in pain, obese Eyes: PERRL, anicteric sclera, EOMI Ears, Nose, Mouth, Throat: moist mucous membranes, hearing normal, ears appear normal, no oral mucosal ulcers Cardiovascular: regular rate and rhythym, no murmur, rub, or gallop, No edema Respiratory: no respiratory distress, no rales or rhonchi, clear to auscultation Gastrointestinal: normoactive bowel sounds, soft, non-tender abdomen, no palpable masses Genitourinary: no bladder fullness, no bladder tenderness, no renal bruits Skin: no rashes or abrasions, no fluctuance, no induration Musculoskeletal: full muscle strength, no muscle tenderness, normal joint ROM Neurologic: AAOx3, sensation intact bilaterally ICD10 Worksheet Patient Problems: Problems Problem Status Onset Hypokalemia Acute Hypoxia Acute Pneumonia Acute
[2018-04-04] MEDS: amLODIPine BESYLATE 5 MG TAB PO SCH (09:42)
[2018-04-04] MEDS: ESCITALOPRAM OXALATE 10 MG TAB PO SCH (09:42)
[2018-04-04] MEDS: ENOXAPARIN 40 MG/0.4 ML SYR SC SCH (09:43)
[2018-04-04] MEDS: POTASSIUM CL 20 MEQ PKT PO SCH (09:45)
[2018-04-04] MEDS: NYSTATIN POWDER 15 GM BTL TP SCH ×3 (09:46→23:10)
[2018-04-04] MEDS: AZITHROMYCIN IV 500 MG in NS 250 ML IV SCH (10:33)
[2018-04-04] MEDS: ACETAMINOPHEN 325 MG TAB PO PRN (17:40)
[2018-04-04] MEDS: traMADol 50 MG TAB PO PRN (19:44)
--- NOTE | 2018-04-04 21:30 | ASMTCMCOM ---
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 The family is aware of the time commitment for the patient to stay. They hope to go to [facility] and referral placed via allscripts. CM to follow. Plan: To SNF when medically cleared for discharge. Date Signed: 04/04/2018 12:24 PM Electronically Signed By:Niharika Lainez RN
[2018-04-05] MEDS: IBUPROFEN 600 MG TAB PO PRN ×2 (04:52→11:02)
[2018-04-05] MEDS: ACETAMINOPHEN 325 MG TAB PO PRN ×2 (06:40→11:03)
[2018-04-05] MEDS: AZITHROMYCIN IV 500 MG in NS 250 ML IV SCH ×2 (09:57→10:48)
[2018-04-05] MEDS: amLODIPine BESYLATE 5 MG TAB PO SCH (09:59)
[2018-04-05] MEDS: ESCITALOPRAM OXALATE 10 MG TAB PO SCH (09:59)
[2018-04-05] MEDS: ENOXAPARIN 40 MG/0.4 ML SYR SC SCH (10:04)
[2018-04-05] MEDS: POTASSIUM CL 20 MEQ PKT PO SCH (10:14)
[2018-04-05] MEDS: NYSTATIN POWDER 15 GM BTL TP SCH (10:15)
[2018-04-05] MEDS ORDERED: AZITHROMYCIN 250 MG TAB PO SCH (10:45)
--- NOTE | 2018-04-05 10:54 | PDIAF ---
- Diagnosis Code Status: Full Code - Medication Management Additional Medication Instructions: Continue azithromycin 500mg PO daily through 04/10. Discharge Medications: electronically signed and located in the Home Medication List. PICC Care - Routine: N/A - Orders Services needed: Physical Therapy, Occupational Therapy Isolation Type: None Diet Recommendation: no restrictions on diet [place]: Not applicable Additional Instructions: Take azithromycin 500mg PO daily through 04/10. We also added a nystatin powder to limit infection on your skin. Otherwise, no medication changes. - Follow Up Care Current Providers and Referrals: Yumiko Pena MD [Primary Care Provider] - As per Instructions
--- NOTE | 2018-04-05 10:56 | PDDCSUM ---
Discharge Summary Discharge Summary: Date of Admission: 03/31/2018 Date of Discharge: 04/05/2018 Studies: 1. CTA chest: no evidence of PE, moderate consolidation/pneumonia left upper lobe and lingula, compressive atelectatic change supsect in right lung base Discharge Diagnoses: 1. Legionella community acquired pneumonia 2. Acute hypoxemic respiratory failure, resolved 3. Deconditioning 4. Intertriginous candidiasis 5. Hypokalemia, resolved 6. H/o transaminitis 7. Urinary incontinence 8. Osteoarthritis 9. HTN 10. Hematologic lab abnormalities Brief Hospital Course: 57 yo female w hx of htn, obesity presented with about 10 days of progressive weakness and subjective fevers found to have radiographic evidence of multifocal pneumonia on CT. She was initially treated for CAP with ceftriaxone and azithromycin. Work up revealed Legionella on urine antigen testing at which time her antibiotics were narrowed to azithromycin for which she should complete a 10 day course. Her oxygen was weaned to room air. The health department was alerted to her Legionella diagnosis. She did not have any extra- pulmonary manifestations of Legionella. She developed new urinary incontinence just prior to admission. I suspect this is due to pelvic floor muscle weakness in the setting of infection given the timing. I recommended kegel exercises and to follow up with her PCP. Lastly, she did have some abnormalities on CBC (Dohle bodies, toxic granulation) . These are likely due to infection but recommend repeating CBC in outpatient setting. Medications: Please refer to EMR for complete list. Changes this admission include addition of azithromycin 500mg PO daily through 04/10, nystatin powder, tramadol 50mg q6h PRN. Follow Up Plan: 1. Complete course of antibiotics 2. Recommend urinary incontinence evaluation with PCP 3. Monitor LFTs in outpatient setting periodically 4. Repeat CBC w/diff in 2-4 weeks to see if abnormalities (Dohle bodies, echinocytes, toxic granulation) persist Physical Exam: Vitals reviewed, afebrile. Alert and oriented, RRR without m/r/g , lungs with improved aeration and no wheezing or distress, abdomen soft and nt , no leg edema.
[2018-04-05 11:36] VITALS: BP 133/81
--- NOTE | 2018-04-05 11:52 | ASMTLACE ---
LACE Length of stay for Answers: 4-6 days current admission Comorbidities - select Answers: Other Notes: pneumonia all that apply # of Emergency department Answers: 1-2 visits in the last 6 months Score: 6 Date Signed: 04/05/2018 11:52 AM Electronically Signed By:Niharika Lainez RN
--- NOTE | 2018-04-05 11:54 | ASMTCMCOM ---
CM Note CM Note Notes: Spoke with inpatient rehab and they are able to accept patient. I have spoken with Allie and told her they would need her to arrive there by 1 pm. She has been medically cleared for discharge. She is calling her son for a ride. Transfer summary and interagency in the computer. Date Signed: 04/05/2018 11:54 AM Electronically Signed By:Niharika Lainez RN
[2018-04-05] MEDS: traMADol 50 MG TAB PO PRN (13:46)
== END 2018-04-05 14:30 | DRG 137 ==
LOC: CED 15:27 → CEDHOLD 18:06 → F2W 20:05 → F1N 04-01 15:05
PROVIDERS: ADMIT Internal Medicine; ATTEND Internal Medicine
DX: J15.8 Pneumonia due to other specified bacteria (principal); J96.01 Acute respiratory failure with hypoxia; B37.2 Candidiasis of skin and nail; E87.6 Hypokalemia; R32 Unspecified urinary incontinence; I10 Essential (primary) hypertension; M19.90 Unspecified osteoarthritis, unspecified site; E86.9 Volume depletion, unspecified; E66.01 Morbid (severe) obesity due to excess calories; Z23 Encounter for immunization
CPT/HCPCS: 71046-PO; 71275-PO; 80053-PO; 82435-PO; 82565-PO; 82947-PO; 83605-PO; 84132-PO; 84295-PO; 84484-PO; 84520-PO; 85014-PO; 87449-90; 96365; 97110-GP; 97116-GP; 97161-GP; 97165-GO; 97530-GO; 97530-GP; 97535-GO; G0008; J0456; J0696; J1650; J2405; J3480; Q9967

== ENCOUNTER 2018-04-05 14:42 | Inpatient (IN) | payer MEDICAID ==
[2018-04-05] MEDS ORDERED: MAG HYDROX/AL HYDROX/SIMETH 30 ML UDCUP PO PRN (15:40)
[2018-04-05] MEDS ORDERED: BENEFIBER/NUTRISOURCE FIBER PKT 1 EACH PO PRN (15:40)
[2018-04-05] MEDS ORDERED: MAGNESIUM HYDROXIDE 30 ML UDCUP PO PRN (15:40)
[2018-04-05] MEDS ORDERED: CETIRIZINE 10 MG TAB PO PRN (15:48)
--- NOTE | 2018-04-05 15:52 | PDOREHIP ---
Admission IRF-[facility] - Admission - 3 Day Assessment Period Admission Date/Day 1: 04/05/18 Day 2: 04/06/18 Day 3: 04/07/18 - Active Diagnoses Comorbidities and Co-existing Conditions at Admission: 71722. None of the Above - Skin Conditions # Stage 1 Pressure Ulcers-Admission: 0 # Stage 2 Pressure Ulcers-Admission: 0 # Stage 3 Pressure Ulcers-Admission: 0 # Stage 4 Pressure Ulcers-Admission: 0 # Unstageable Pressure Ulcers (Non-remove Dress)-Admission: 0 # Unstageable Pressure Ulcers (Slough/Eschar)-Admission: 0 # Unstageable Pressure Ulcers (Deep Tissue Injury)-Admission: 0
[2018-04-05] MEDS ORDERED: LOSARTAN/HCTZ 50/12.5 1 TAB PO SCH (16:15)
--- NOTE | 2018-04-05 16:38 | GHP ---
POST ADMISSION PHYSICIAN EVALUATION AND REHABILITATION TREATMENT PLAN. DATE OF ADMISSION: 04/05/2018 TIME OF EVALUATION: 2:40 p.m. REFERRING FACILITY: [facility]. REFERRING PHYSICIAN: Tim Clinton MD IMPAIRMENT GROUP: 16-Disability. DATE OF ONSET: 03/31/2018. CONSULTING PHYSICIAN: Pulmonary Medicine. REHABILITATION DIAGNOSIS: Debility. ETIOLOGIC DIAGNOSIS: Pneumonia. HISTORY OF PRESENT ILLNESS: A 57-year-old female with past medical history significant for obesity, hypertension, lumbar spondylosis and degenerative hip osteoarthritis who presented to Urgent Care on 03/31/2018 with a 10-day history of weak and increasing shortness of breath. The patient was noted to have a nonproductive cough, subjective fevers and decreased p.o. intake. CTA chest was obtained and showed no evidence of pulmonary embolus, moderate consolidation /pneumonia left upper lobe and lingula, compressive atelectatic changes suspect in right lung base. The patient was diagnosed with Legionella community- acquired pneumonia and acute hypoxemic respiratory failure. She did not require intubation. She was also diagnosed with intertriginous candidiasis, hypokalemia, and new onset urinary incontinence. Antibiotic therapy was initiated with Zithromax 500 mg p.o. daily and will continue through 03/31. The patient was also noted to be deconditioned and physical and occupational therapy was initiated. Her hypokalemia resolved but she continues to have urinary incontinence. Currently, she denies shortness of breath with the exception of performing vigorous activities such as car transfers. She does not report chest pain or angina like symptoms. She states that prior to recent onset of pneumonia, she was ambulating short distances within the house using an FWW. She reports full independence with activities of daily living, but perhaps was having some difficulty cleaning her house. She lives in an apartment, single-level, stairs to enter the home. She does have a raised toilet seat, but does report some difficulty getting in and out of the bathtub. LABORATORY STUDIES: From 04/03/2018, sodium 137, potassium 4.3 from 04/05, chloride 112 from 04/03, BUN 20 04/03, creatinine 0.7 04/03, glucose 101 04/03, POC lactic acid 03/31 1.1. Total bilirubin 03/31 0.6. WBC 10.7, 12, 10. Hemoglobin 11.6, hematocrit 35.9, both from 04/03. 03/31/2018, PT 14.2, INR 1.1. We will have nursing verify as to whether patient was receiving Lovenox injections in acute care and if so, if she was discharged with this medication as it is not on her med list. PRECAUTIONS: Safety/fall precautions, fall risk. ACTIVE COMORBIDITIES: Morbid obesity, osteoarthritis lumbar spine and both hips. PAST MEDICAL HISTORY: Hypertension, morbid obesity, osteoarthritis, right and left hip, lumbar spondylosis, anxiety. PAST SURGICAL HISTORY: Patient herself reports no previous histories. ADMISSION MEDICATIONS: Nystatin powder topical 3 daily. Erythromycin 500 mg p.o. daily through 04/05. Tramadol 50 mg q.6 hours p.r.n. pain. Lexapro 20 mg p.o. daily. Amlodipine 5 mg p.o. daily. Zyrtec 10 mg p.o. daily p.r.n. Losartan/hydrochlorothiazide 100/25 p.o. daily. Ibuprofen 600 mg 4 times daily p.r.n. pain. ALLERGIES: No known drug allergies. PSYCHOSOCIAL HISTORY: The patient recently relocated from [place] to [place] where she lives in a 1 story apartment on ground level. Daughter lives nearby who can assist with her care following discharge. Patient plans on returning home following discharge. She was using an FWW in her apartment and in the community. FAMILY HISTORY: Noncontributory. REVIEW OF SYSTEMS: HEENT: The patient denies jaw pain, tinnitus or dysphagia. CARDIAC: Denies irregular heart rate or angina-like symptoms. Denies tongue , neck claudication. PULMONARY: Currently denies shortness of breath. Reports mild shortness of breath with exertion. The patient does not use supplemental oxygen when at home. : Patient reports urinary incontinence since she was hospitalized, but denies prior. Denies dysuria, frequency, or urgency. GI: Denies bowel incontinence. LYMPH: Patient reports intermittent lower extremity edema when she misses a few doses of her losartan. MUSCULOSKELETAL: Reports frequent low back and bilateral hip pain. She reports that she previously saw Dr. Eitan Velasco in [place] who told her that she would need total hip arthroplasties at some point. SKIN: Reports skin breakdown in the panniculus. PHYSICAL EXAM: VITALS: Blood pressure 126/79, pulse 82 and regular, respiratory rate 20, O2 saturation 92% on room air. CONSTITUTION: Overweight pleasant female, appears comfortable, sitting in a wheelchair. Well groomed. HEENT: EOMI. Pupils equal, round, reactive to light and accommodation. Good dentition. Oral mucosa moist. NECK: Supple, no lymphadenopathy. PULMONARY: Lungs clear to auscultation. No E to A changes. No wheezes or crackles. CARDIAC: Regular rate and rhythm without murmurs or gallops. Trace edema both lower extremities with early skin changes consistent with mild stasis dermatitis. ABDOMEN: Protuberant. Skin breakdown noticed in the panniculus. Soft, nontender, normoactive bowel sounds all 4 quadrants. No rebound, guarding or tenderness. No suprapubic tenderness. SKIN: emblem drawer in all 4 extremities. NEUROLOGIC: Alert and oriented x3. Answers questions appropriately and participates willingly during history and physical exam. Cranial nerves 2-12 grossly intact. Tracks across all visual guardado. No nystagmus. Motor testing of both upper extremities reveals 4+/5 in anterior and middle deltoid, biceps, triceps, brachioradialis, internal and external shoulder rotators, wrist and finger extensors. Normal and symmetric java lead engineer strength. Motor testing of the lower extremities reveals weakness of both hip flexors, more pronounced on the left and rated as 2+/5. Weakness of the hip abductors also noted. 3-/5 right and left quadriceps and hamstrings, 4/5 right and left ankle dorsiflexors and plantar flexors. Sensation is intact to light touch throughout the upper and lower extremities. DTRs unelicitable. CURRENT LEVEL OF FUNCTION: Per the preadmission screen. Regular diet. Min assist standing with FWW at sink, shower seated with mod assist. Dressing seated, upper body, min assist seated, lower body, max assist. Toileting, min assist. Bladder incontinent bowel to be determined. Bed mobility min assist, transfers min assist with FWW. Toilet transfer with FWW min assist. Equipment : FWW balance, standby assist/contact guard assist with FWW endurance, decreased from baseline. Gait: Ambulating 125 feet, min assist with several breaks to rest. Wheelchair: TBA, stairs TBA. Communication: WNL. Cognition : WNL. Safety precautions: Fall risk. REHAB GOALS AND PLANS: Anticipate the patient will be able to advance to an independent/modified independent level of functional mobility and perform ADLs with a walker. Bathroom equipment to allow for safe discharge home alone to 1 level apartment with no steps to enter. The patient will be able to tolerate these activities while maintaining O2 saturation within normal limits. PATIENT/FAMILY/CAREGIVER GOALS: Discharge home with intermittent supportive son and [id number] who visit patient. She will have physical and occupational therapy 60 minutes per day for each discipline 5-7 days of the week. Speech and language pathology evaluation and treatment also 1 hour per day 5-7 days per week. Estimated length of stay is 10 -12 days. IMPRESSION/PLAN: 1. Legionella community-acquired pneumonia. Incentive spirometer to bedside and instructed to use by nursing 10 puffs per hour while awake. Physical Therapy to address on strengthening diaphragm and accessory respiratory muscles. Patient to be instructed to perform 1 strong cough per hour. Continue Zithromax 500 mg p.o. daily through 04/10. The patient is to maintain hydration to avoid recurrence of pneumonia. 2. Acute hypoxemic respiratory failure, resolved. As above, patient to practice a good pulmonary toilet, use incentive spirometer 10 puffs per hour while awake and Physical Therapy to address diaphragm and accessory respiratory muscle strengthening. 3. Deconditioning. Patient will require physical and occupational therapy to improve upper and lower extremity strength, core strength, balance, and mobility. The patient may require integrated physical therapy and occupational therapy for certain activities of daily living, and core strengthening. 4. Intertriginous candidiasis. Continue nystatin 1 application topical 3 times daily. 5. Urinary incontinence. Bladder training. Timed toileting. Physical Therapy to work on strengthening pelvic floor muscles and Kegel exercises. If necessary, may need to begin medication such as Ditropan 2.5 to 5 mg p.o. 3 times daily. 6. Osteoarthritis, lumbar spondylosis and bilateral hips. Ibuprofen 600 p.o. 4 times daily p.r.n. pain. Continue tramadol 50 mg q.6 hours p.r.n. pain. 7. Hypertension. Continue Norvasc 5 mg daily and losartan-hydrochlorothiazide 10/25 mg p.o. daily. Will monitor blood pressure q. shift. 8. Hematological lab abnormalities. We will continue to follow with admitting lab work. /[id number]/MODL MTDD
[2018-04-05] MEDS: IBUPROFEN 200 MG TAB PO PRN (17:35)
[2018-04-05] MEDS: ACETAMINOPHEN 325 MG TAB PO PRN ×2 (17:35→21:32)
[2018-04-05] MEDS: LOSARTAN POTASSIUM 50 MG TAB PO SCH (17:42)
[2018-04-05] MEDS: HYDROCHLOROTHIAZIDE 25 MG TAB PO SCH (17:50)
[2018-04-05] MEDS: NYSTATIN POWDER 15 GM BTL TP SCH ×2 (19:05→22:24)
[2018-04-05] MEDS: traMADol 50 MG TAB PO PRN (21:33)
[2018-04-05] MEDS: SENNOSIDES/DOCUSATE SODIUM TAB PO SCH (22:30)
[2018-04-06] MEDS: IBUPROFEN 200 MG TAB PO PRN ×4 (00:04→19:10)
[2018-04-06] MEDS: ACETAMINOPHEN 325 MG TAB PO PRN ×4 (04:52→22:00)
[2018-04-06] MEDS: SENNOSIDES/DOCUSATE SODIUM TAB PO SCH ×2 (08:47→20:17)
[2018-04-06] MEDS: HYDROCHLOROTHIAZIDE 25 MG TAB PO SCH (08:47)
[2018-04-06] MEDS: amLODIPine BESYLATE 5 MG TAB PO SCH (08:48)
[2018-04-06] MEDS: AZITHROMYCIN 250 MG TAB PO SCH (08:48)
[2018-04-06] MEDS: LOSARTAN POTASSIUM 50 MG TAB PO SCH (08:54)
[2018-04-06] MEDS: ESCITALOPRAM OXALATE 10 MG TAB PO SCH (08:56)
--- NOTE | 2018-04-06 08:57 | SOAPPROG ---
SOAP Progress Note Assessment/Plan: Assessment: IMPRESSION/PLAN: 1. Disability secondary to Legionella community-acquired pneumonia. Incentive spirometer to bedside and instructed to use by nursing 10 puffs per hour while awake. Physical Therapy to address on strengthening diaphragm and accessory respiratory muscles. Patient to be instructed to perform 1 strong cough per hour. Continue Zithromax 500 mg p.o. daily through 04/10. The patient is to maintain hydration to avoid recurrence of pneumonia. 2. Acute hypoxemic respiratory failure, resolved. As above, patient to practice a good pulmonary toilet, use incentive spirometer 10 puffs per hour while awake and Physical Therapy to address diaphragm and accessory respiratory muscle strengthening. 3. Deconditioning. Patient will require physical and occupational therapy to improve upper and lower extremity strength, core strength, balance, and mobility. The patient may require integrated physical therapy and occupational therapy for certain activities of daily living, and core strengthening. THE PATIENT WOULD BENEFIT FROM BEDSIDE EXERCISES THAT SHE CAN PERFORM WHILE SEATED IN WHEELCHAIR OR LYING IN BED TO STRENGTH IN HIP FLEXORS AND ABDUCTORS IN ADDITION TO PHYSICAL THERAPY SESSIONS. 4. Intertriginous candidiasis. Continue nystatin 1 application topical 3 times daily. 5. Urinary incontinence. Bladder training. Timed toileting. Physical Therapy to work on strengthening pelvic floor muscles and Kegel exercises. If necessary, may need to begin medication such as Ditropan 2.5 to 5 mg p.o. 3 times daily. PATIENT REPORTS SHE WAS CONTINENT OF URINE LAST NIGHT. 6. Osteoarthritis, lumbar spondylosis and bilateral hips. Ibuprofen 600 p.o. 4 times daily p.r.n. pain. Continue tramadol 50 mg q.6 hours p.r.n. pain. WILL MONITOR LOW BACK PAIN MAY IMPEDE REHAB PROGRESS. WE WILL CONSIDER ADDITIONAL PAIN MEDICATIONS OR LIDODERM PATCH IF NECESSARY 7. Hypertension. Continue Norvasc 5 mg daily and losartan-hydrochlorothiazide 10/25 mg p.o. daily. Will monitor blood pressure q. shift. BLOOD PRESSURE THIS MORNING 107/[address] PARAMETERS TO HOLD BLOOD PRESSURE MEDICATIONS. 8. Hematological lab abnormalities. We will continue to follow with admitting lab work. CBC, CHEM 7 PENDING. Plan: 04/06/18 08:55 Subjective: She reports she had a good night last night. She woke up in the middle night to urinate and reports full urinary incontinence. Denies shortness of breath. Denies chest pain. Objective: Vital Signs Temp Pulse Resp BP Pulse Ox 36.6 C 62 16 107/69 93 04/06/18 07:16 04/06/18 07:16 04/06/18 07:16 04/06/18 07:16 04/06/18 07:16 04/05/18 04/06/18 04/07/18 05:59 05:59 05:59 Intake Total 960 Output Total 1200 Balance -240 Physical Exam - Physical Exam General Appearance: WD/WN, alert, no apparent distress Respiratory: chest non-tender, lungs clear, normal breath sounds Cardiac/Chest: No edema Abdomen: normal bowel sounds, non-tender, soft Skin: normal color, warm/dry Extremities: No swelling, No Shae's sign Neuro/Psych: motor weakness (Predominantly hip flexors and abductors. 3+ 4-/5 right and left quadriceps and ankle dorsiflexors.) ICD10 Worksheet Patient Problems: Problems Problem Status Onset Hypokalemia Acute Hypoxia Acute Pneumonia Acute
[2018-04-06] MEDS: NYSTATIN POWDER 15 GM BTL TP SCH ×3 (09:00→22:00)
[2018-04-06 10:01] LABS: PLATELET COUNT 501 10^3/uL (150-400)
[2018-04-06] MEDS: traMADol 50 MG TAB PO PRN (20:16)
[2018-04-07] MEDS: IBUPROFEN 200 MG TAB PO PRN ×4 (00:35→22:01)
[2018-04-07] MEDS ORDERED: CHLORHEXIDINE GLUC HIBICLENS 118 ML BTL TP ONE (07:36)
[2018-04-07] MEDS ORDERED: LIDOCAINE 2% JELLY 20 ML (UROJECT) ONE (07:36)
[2018-04-07] MEDS ORDERED: BUPIVACAINE/EPI 0.25% 30 ML SDV ONE (07:36)
[2018-04-07] MEDS ORDERED: THROMBIN (BOVINE) 5,000 UNIT VIAL TP ONE (07:36)
[2018-04-07] MEDS ORDERED: GENTAMICIN SULFATE 80 MG/2 ML VIAL ONE (07:37)
[2018-04-07] MEDS ORDERED: POVIDONE-IODINE 30 GM OINTTUBE TP ONE (07:37)
--- NOTE | 2018-04-07 08:42 | SOAPPROG ---
SOAP Progress Note Assessment/Plan: Assessment: IMPRESSION/PLAN: 1. Disability secondary to Legionella community-acquired pneumonia. Incentive spirometer to bedside and instructed to use by nursing 10 puffs per hour while awake. Physical Therapy to address on strengthening diaphragm and accessory respiratory muscles. Patient to be instructed to perform 1 strong cough per hour. Continue Zithromax 500 mg p.o. daily through 04/10. The patient is to maintain hydration to avoid recurrence of pneumonia. 2. Acute hypoxemic respiratory failure, resolved. As above, patient to practice a good pulmonary toilet, use incentive spirometer 10 puffs per hour while awake and Physical Therapy to address diaphragm and accessory respiratory muscle strengthening. 3. Deconditioning. Patient will require physical and occupational therapy to improve upper and lower extremity strength, core strength, balance, and mobility. The patient may require integrated physical therapy and occupational therapy for certain activities of daily living, and core strengthening. THE PATIENT WOULD BENEFIT FROM BEDSIDE EXERCISES THAT SHE CAN PERFORM WHILE SEATED IN WHEELCHAIR OR LYING IN BED TO STRENGTH IN HIP FLEXORS AND ABDUCTORS IN ADDITION TO PHYSICAL THERAPY SESSIONS. 4. Intertriginous candidiasis. Continue nystatin 1 application topical 3 times daily. 5. Urinary incontinence. IMPROVING. Continue bladder training. Timed toileting. Physical Therapy to work on strengthening pelvic floor muscles and Kegel exercises. If necessary, may need to begin medication such as Ditropan 2.5 to 5 mg p.o. 3 times daily. 6. Osteoarthritis, lumbar spondylosis and bilateral hips. Ibuprofen 600 p.o. 4 times daily p.r.n. pain. Continue tramadol 50 mg q.6 hours p.r.n. pain. WILL MONITOR LOW BACK PAIN MAY IMPEDE REHAB PROGRESS. WE WILL CONSIDER ADDITIONAL PAIN MEDICATIONS OR LIDODERM PATCH IF NECESSARY. Currently, patient denies that he back or hip pain is impeding progress in therapy sessions. 7. Hypertension. Continue Norvasc 5 mg daily and losartan-hydrochlorothiazide 10/25 mg p.o. daily. Will monitor blood pressure q. shift. BLOOD PRESSURE THIS MORNING 107/[address] PARAMETERS TO HOLD BLOOD PRESSURE MEDICATIONS. Blood pressure on 04/07 105/56 8. Post admit lab work: Sodium 135, potassium 4.2 hemoglobin 11 hematocrit 32 Plan: 04/06/18 08:55 04/07/18 13:55 04/07/18 13:56 04/07/18 13:56 Subjective: No complaints this morning with the exception that she has a little bit of shortness of breath when she goes from sit to stand. She is ambulating to the bathroom with the FWW with standby assist from nursing. She does not report that her back or hip pain is aggravated by therapy activities. Objective: Vital Signs Temp Pulse Resp BP Pulse Ox 36.5 C 64 16 108/62 94 04/07/18 06:46 04/07/18 06:46 04/07/18 06:46 04/07/18 06:46 04/07/18 06:46 Laboratory Results 04/06/18 06:15 04/06/18 06:15 04/06/18 04/07/18 04/08/18 05:59 05:59 05:59 Intake Total 960 1050 Output Total 1200 Balance -240 1050 Physical Exam - Physical Exam General Appearance: WD/WN, alert, no apparent distress Respiratory: other (SLIGHT CRACKLES RIGHT BASE OTHERWISE LUNGS CLEAR) Cardiac/Chest: regular rate, rhythm, edema, other (TRACE PRETIBIAL EDEMA.) Abdomen: non-tender, soft, other (NO SUPRAPUBIC TENDERNESS) Skin: normal color, warm/dry Extremities: No swelling, No Shae's sign Neuro/Psych: motor weakness (WEAKNESS PREDOMINANTLY IN RIGHT AND LEFT HIP FLEXORS) ICD10 Worksheet Patient Problems: Problems Problem Status Onset Hypokalemia Acute Hypoxia Acute Pneumonia Acute
[2018-04-07] MEDS: AZITHROMYCIN 250 MG TAB PO SCH (09:06)
[2018-04-07] MEDS: ESCITALOPRAM OXALATE 10 MG TAB PO SCH (09:07)
[2018-04-07] MEDS: SENNOSIDES/DOCUSATE SODIUM TAB PO SCH (09:07)
[2018-04-07] MEDS: LOSARTAN POTASSIUM 50 MG TAB PO SCH (09:12)
[2018-04-07] MEDS: amLODIPine BESYLATE 5 MG TAB PO SCH (09:12)
[2018-04-07] MEDS: ACETAMINOPHEN 325 MG TAB PO PRN ×2 (09:17→18:53)
[2018-04-07] MEDS: NYSTATIN POWDER 15 GM BTL TP SCH ×3 (09:18→21:07)
[2018-04-07] MEDS: HYDROCHLOROTHIAZIDE 25 MG TAB PO SCH (13:00)
[2018-04-07] MEDS ORDERED: SENNOSIDES 1 TAB PO PRN (16:04)
[2018-04-07] MEDS: traMADol 50 MG TAB PO PRN (21:06)
[2018-04-08] MEDS: ACETAMINOPHEN 325 MG TAB PO PRN ×3 (07:53→19:11)
[2018-04-08] MEDS: ESCITALOPRAM OXALATE 10 MG TAB PO SCH (07:54)
[2018-04-08] MEDS: AZITHROMYCIN 250 MG TAB PO SCH (07:54)
[2018-04-08] MEDS: NYSTATIN POWDER 15 GM BTL TP SCH ×3 (08:00→21:31)
[2018-04-08] MEDS: LOSARTAN POTASSIUM 50 MG TAB PO SCH (08:01)
[2018-04-08] MEDS: HYDROCHLOROTHIAZIDE 25 MG TAB PO SCH (08:02)
[2018-04-08] MEDS: amLODIPine BESYLATE 5 MG TAB PO SCH (08:02)
--- NOTE | 2018-04-08 12:37 | HOSPPROG ---
Hospitalist Progress Note Assessment/Plan: MPRESSION/PLAN: 1. Disability secondary to Legionella community-acquired pneumonia. Incentive spirometer to bedside and instructed to use by nursing 10 puffs per hour while awake. Physical Therapy to address on strengthening diaphragm and accessory respiratory muscles. Patient to be instructed to perform 1 strong cough per hour. Continue Zithromax 500 mg p.o. daily through 04/10. The patient is to maintain hydration to avoid recurrence of pneumonia. 2. Acute hypoxemic respiratory failure, resolved. As above, patient to practice a good pulmonary toilet, use incentive spirometer 10 puffs per hour while awake and Physical Therapy to address diaphragm and accessory respiratory muscle strengthening. 3. Deconditioning. Patient will require physical and occupational therapy to improve upper and lower extremity strength, core strength, balance, and mobility. The patient may require integrated physical therapy and occupational therapy for certain activities of daily living, and core strengthening. THE PATIENT WOULD BENEFIT FROM BEDSIDE EXERCISES THAT SHE CAN PERFORM WHILE SEATED IN WHEELCHAIR OR LYING IN BED TO STRENGTH IN HIP FLEXORS AND ABDUCTORS IN ADDITION TO PHYSICAL THERAPY SESSIONS. 4. Intertriginous candidiasis. Continue nystatin 1 application topical 3 times daily. 5. Urinary incontinence. IMPROVING. Continue bladder training. Timed toileting. Physical Therapy to work on strengthening pelvic floor muscles and Kegel exercises. If necessary, may need to begin medication such as Ditropan 2.5 to 5 mg p.o. 3 times daily. 6. Osteoarthritis, lumbar spondylosis and bilateral hips. Ibuprofen 600 p.o. 4 times daily p.r.n. pain. Continue tramadol 50 mg q.6 hours p.r.n. pain. WILL MONITOR LOW BACK PAIN MAY IMPEDE REHAB PROGRESS. WE WILL CONSIDER ADDITIONAL PAIN MEDICATIONS OR LIDODERM PATCH IF NECESSARY. Currently, patient denies that he back or hip pain is impeding progress in therapy sessions. 7. Hypertension. Continue Norvasc 5 mg daily and losartan-hydrochlorothiazide 10/25 mg p.o. daily. Will monitor blood pressure q. shift. BLOOD PRESSURE THIS MORNING 107/[address] PARAMETERS TO HOLD BLOOD PRESSURE MEDICATIONS. Blood pressure on 04/07 105/56 8.New diarrhea * check cdiff, if negative then can start Imodium Subjective: new diarrhea, some cramping. no cough Objective: Vital Signs Temp Pulse Resp BP Pulse Ox 36.3 C 84 14 106/65 92 04/08/18 08:00 04/08/18 08:00 04/08/18 08:00 04/08/18 08:01 04/08/18 08:00 Laboratory Results 04/06/18 06:15 04/06/18 06:15 04/07/18 04/08/18 04/09/18 05:59 05:59 05:59 Intake Total 1050 1220 400 Balance 1050 1220 400 - Physical Exam Constitutional: no apparent distress, appears nourished, not in pain Eyes: anicteric sclera Cardiovascular: regular rate and rhythym, no murmur, rub, or gallop, edema ( trace) Respiratory: no respiratory distress, clear to auscultation Gastrointestinal: normoactive bowel sounds, soft, non-tender abdomen, no palpable masses Skin: warm Neurologic: AAOx3 Psychiatric: interacting appropriately, not anxious, not encephalopathic, thought process linear ICD10 Worksheet Patient Problems: Problems Problem Status Onset Hypokalemia Acute Hypoxia Acute Pneumonia Acute
[2018-04-08] MEDS: traMADol 50 MG TAB PO PRN ×2 (15:12→21:30)
[2018-04-09] MEDS: ACETAMINOPHEN 325 MG TAB PO PRN ×3 (01:05→23:16)
[2018-04-09] MEDS: traMADol 50 MG TAB PO PRN ×2 (05:41→19:44)
[2018-04-09] MEDS: ESCITALOPRAM OXALATE 10 MG TAB PO SCH (09:21)
[2018-04-09] MEDS: AZITHROMYCIN 250 MG TAB PO SCH (09:21)
[2018-04-09] MEDS: LOSARTAN POTASSIUM 50 MG TAB PO SCH (09:22)
[2018-04-09] MEDS: amLODIPine BESYLATE 5 MG TAB PO SCH (09:22)
[2018-04-09] MEDS: HYDROCHLOROTHIAZIDE 25 MG TAB PO SCH (09:22)
[2018-04-09] MEDS: NYSTATIN POWDER 15 GM BTL TP SCH ×3 (09:26→22:00)
[2018-04-09] MEDS: IBUPROFEN 200 MG TAB PO PRN ×2 (09:34→18:08)
--- NOTE | 2018-04-09 12:22 | HOSPPROG ---
Hospitalist Progress Note Assessment/Plan: MPRESSION/PLAN: 1. Disability secondary to Legionella community-acquired pneumonia. Incentive spirometer to bedside and instructed to use by nursing 10 puffs per hour while awake. Physical Therapy to address on strengthening diaphragm and accessory respiratory muscles. Patient to be instructed to perform 1 strong cough per hour. Continue Zithromax 500 mg p.o. daily through 04/10. The patient is to maintain hydration to avoid recurrence of pneumonia. 2. Acute hypoxemic respiratory failure, resolved. As above, patient to practice a good pulmonary toilet, use incentive spirometer 10 puffs per hour while awake and Physical Therapy to address diaphragm and accessory respiratory muscle strengthening. 3. Deconditioning. Patient will require physical and occupational therapy to improve upper and lower extremity strength, core strength, balance, and mobility. The patient may require integrated physical therapy and occupational therapy for certain activities of daily living, and core strengthening. THE PATIENT WOULD BENEFIT FROM BEDSIDE EXERCISES THAT SHE CAN PERFORM WHILE SEATED IN WHEELCHAIR OR LYING IN BED TO STRENGTH IN HIP FLEXORS AND ABDUCTORS IN ADDITION TO PHYSICAL THERAPY SESSIONS. 4. Intertriginous candidiasis. Continue nystatin 1 application topical 3 times daily. 5. Urinary incontinence. IMPROVING. Continue bladder training. Timed toileting. Physical Therapy to work on strengthening pelvic floor muscles and Kegel exercises. If necessary, may need to begin medication such as Ditropan 2.5 to 5 mg p.o. 3 times daily. 6. Osteoarthritis, lumbar spondylosis and bilateral hips. Ibuprofen 600 p.o. 4 times daily p.r.n. pain. Continue tramadol 50 mg q.6 hours p.r.n. pain. WILL MONITOR LOW BACK PAIN MAY IMPEDE REHAB PROGRESS. WE WILL CONSIDER ADDITIONAL PAIN MEDICATIONS OR LIDODERM PATCH IF NECESSARY. Currently, patient denies that he back or hip pain is impeding progress in therapy sessions. 7. Hypertension. Continue Norvasc 5 mg daily and losartan-hydrochlorothiazide 10/25 mg p.o. daily. Will monitor blood pressure q. shift. BLOOD PRESSURE THIS MORNING 107/[address] PARAMETERS TO HOLD BLOOD PRESSURE MEDICATIONS. Blood pressure on 04/07 105/56 8.New diarrhea 04/08 * resolved 04/09. probably d/t laxative. will dc cdiff test and isolation precautions Subjective: diarrhea resolved - probably d/t laxatives Objective: Vital Signs Temp Pulse Resp BP Pulse Ox 36.5 C 74 17 115/60 94 04/09/18 06:56 04/09/18 09:20 04/09/18 06:56 04/09/18 09:22 04/09/18 06:56 Laboratory Results 04/06/18 06:15 04/06/18 06:15 04/08/18 04/09/18 04/10/18 05:59 05:59 05:59 Intake Total 1220 1600 Output Total 450 Balance 1220 1150 - Physical Exam Constitutional: no apparent distress, appears nourished, not in pain Eyes: PERRL, anicteric sclera Ears, Nose, Mouth, Throat: moist mucous membranes Cardiovascular: regular rate and rhythym, no murmur, rub, or gallop Respiratory: no respiratory distress, no rales or rhonchi, clear to auscultation Gastrointestinal: normoactive bowel sounds, soft, non-tender abdomen, no palpable masses Skin: warm Neurologic: AAOx3 Psychiatric: interacting appropriately, not anxious, not encephalopathic, thought process linear ICD10 Worksheet Patient Problems: Problems Problem Status Onset Hypokalemia Acute Hypoxia Acute Pneumonia Acute
[2018-04-10] MEDS: IBUPROFEN 200 MG TAB PO PRN ×3 (01:13→14:45)
[2018-04-10] MEDS: ACETAMINOPHEN 325 MG TAB PO PRN ×3 (04:39→22:10)
[2018-04-10] MEDS: amLODIPine BESYLATE 5 MG TAB PO SCH (08:39)
[2018-04-10] MEDS: ESCITALOPRAM OXALATE 10 MG TAB PO SCH (08:39)
[2018-04-10] MEDS: HYDROCHLOROTHIAZIDE 25 MG TAB PO SCH (08:43)
[2018-04-10] MEDS: LOSARTAN POTASSIUM 50 MG TAB PO SCH (08:43)
[2018-04-10] MEDS: AZITHROMYCIN 250 MG TAB PO SCH (08:43)
[2018-04-10] MEDS: NYSTATIN POWDER 15 GM BTL TP SCH ×3 (10:26→22:11)
[2018-04-10] MEDS: traMADol 50 MG TAB PO PRN ×3 (11:42→23:15)
--- NOTE | 2018-04-10 15:31 | SOAPPROG ---
SOAP Progress Note Assessment/Plan: Assessment: Debility status post hospitalization for Legionella community-acquired pneumonia. * Initial functional independence measure 77 on 04/07/2018. Has had subsequent improvement. Bed mobility requires contact guard assist. Sit to stand requires standby assist with front wheeled walker. Reduced hip mobility significantly affects gait. Has ambulated 50-150 feet with front wheeled walker and cues. Grooming and hygiene standing at the sink with front wheeled walker and standby assist. Upper and lower body dressing with modified independence. * Continue PT and OT to optimize mobility towards discharge home. Legionella pneumonia. She has completed azithromycin IV and then oral. No respiratory symptoms at present. Continue to monitor. Encourage incentive spirometry. Intertriginous candidiasis. Continue nystatin 1 application topical 3 times daily. Urinary incontinence. Improving. Continue bladder training. Timed toileting. Physical Therapy to work on strengthening pelvic floor muscles and Kegel exercises. Severe osteoarthritis bilateral hips. Also has lumbar degenerative joint disease. Seen on MRI in January of 2017. * Continue ibuprofen 600 p.o. 4 times daily p.r.n. pain. Continue tramadol 50 mg q.6 hours p.r.n. pain. * Follow-up with Orthopedics after discharge. It would be in her best interest to optimize mobility and reversed deconditioning as much as possible prior to undergoing surgery. Hypertension, with blood pressure overcorrected. She denies symptoms however. Will decrease amlodipine from 5 mg to 2.5 mg q.day. Continue hydrochlorothiazide 25 mg q.day and losartan 100 mg q.day. 04/10/18 15:18 Subjective: No complaints. Sleeping well. Has occasional cough which typically may be productive only in the morning. No dyspnea. No fevers or chills. Has bilateral hip pain and back pain. She had diarrhea with laxatives. Objective: Vital Signs Temp Pulse Resp BP Pulse Ox 36.3 C 65 18 118/65 93 04/10/18 05:01 04/10/18 05:01 04/10/18 05:01 04/10/18 08:39 04/10/18 05:01 Laboratory Results 04/06/18 06:15 04/06/18 06:15 04/09/18 04/10/18 04/11/18 05:59 05:59 05:59 Intake Total 1600 1260 400 Output Total 450 850 150 Balance 1150 410 250 Physical Exam - Physical Exam General Appearance: WD/WN, alert, no apparent distress, obese Respiratory: normal breath sounds, No crackles, No rhonchi, No wheezing Cardiac/Chest: regular rate, rhythm, No edema, No diastolic murmur, No systolic murmur Skin: normal color, warm/dry Neuro/Psych: no motor/sensory deficits, alert, normal mood/affect, oriented x 3 ICD10 Worksheet Patient Problems: Problems Problem Status Onset Pneumonia Acute Hypoxia Acute Hypokalemia Acute
[2018-04-11] MEDS: IBUPROFEN 200 MG TAB PO PRN ×3 (01:40→13:25)
[2018-04-11] MEDS: NYSTATIN POWDER 15 GM BTL TP SCH ×3 (07:37→21:49)
[2018-04-11] MEDS: ESCITALOPRAM OXALATE 10 MG TAB PO SCH (08:17)
[2018-04-11] MEDS: LOSARTAN POTASSIUM 50 MG TAB PO SCH (08:17)
[2018-04-11] MEDS: HYDROCHLOROTHIAZIDE 25 MG TAB PO SCH (08:17)
[2018-04-11] MEDS: traMADol 50 MG TAB PO PRN ×3 (10:49→22:04)
[2018-04-11] MEDS ORDERED: BISACODYL 10 MG SUPP PR PRN (11:48)
--- NOTE | 2018-04-11 12:18 | SOAPPROG ---
SOAP Progress Note Assessment/Plan: Assessment: Debility status post hospitalization for Legionella community-acquired pneumonia. * Initial functional independence measure 77 on 04/07/2018. Has had subsequent improvement. Bed mobility requires contact guard assist. Sit to stand requires standby assist with front wheeled walker. Reduced hip mobility significantly affects gait. Has ambulated 50-150 feet with front wheeled walker and cues. Grooming and hygiene standing at the sink with front wheeled walker and standby assist. Upper and lower body dressing with modified independence. * Continue PT and OT to optimize mobility towards discharge home. Legionella pneumonia. She has completed azithromycin IV and then oral. No respiratory symptoms at present. Continue to monitor. Encourage incentive spirometry. Intertriginous candidiasis. Continue nystatin 1 application topical 3 times daily. Urinary incontinence. Improving. Continue bladder training. Timed toileting. Physical Therapy to work on strengthening pelvic floor muscles and Kegel exercises. Severe osteoarthritis bilateral hips. Also has lumbar degenerative joint disease. Seen on MRI in January of 2017. * Continue ibuprofen 600 p.o. 4 times daily p.r.n. pain. Continue tramadol 50 mg q.6 hours p.r.n. pain. Increased tramadol to range of 50-100 mg q.6 hours. * Follow-up with Orthopedics after discharge. It would be in her best interest to optimize mobility and reversed deconditioning as much as possible prior to undergoing surgery. Constipation x2 days. Likely related to tramadol use. Schedule senna 1 twice daily starting 04/11/2018, and added bisacodyl suppository p.r.n. Hypertension, with blood pressure overcorrected. She denies symptoms however. Will decrease amlodipine from 5 mg to 2.5 mg q.day. Continue hydrochlorothiazide 25 mg q.day and losartan 100 mg q.day. Obesity. Dietitian consult. Discussed options for exercise including water exercise. She reports she did that once and enjoyed, but had anxiety about her ability to climb the ladder to exit the pole. 04/11/18 12:15 Subjective: Had hip pain overnight. Worked on his baby duction with soft-tissue techniques in therapy yesterday. Was sleeping with rolled up towel between her knees. Eventually had to get out of bed and sit up in chair. Otherwise without complaints. No cough or dyspnea, no fevers or chills. Objective: Vital Signs Temp Pulse Resp BP Pulse Ox 36.4 C 67 16 123/66 H 99 04/11/18 08:00 04/11/18 08:00 04/11/18 08:00 04/11/18 08:00 04/11/18 08:00 Laboratory Results 04/06/18 06:15 04/06/18 06:15 04/10/18 04/11/18 04/12/18 05:59 05:59 05:59 Intake Total 1260 1210 300 Output Total 850 150 Balance 410 1060 300 Physical Exam - Physical Exam General Appearance: WD/WN, alert, no apparent distress, obese Respiratory: No respiratory distress, No accessory muscle use Cardiac/Chest: edema (Trace to 1+ left pretibial) Skin: normal color, warm/dry Neuro/Psych: no motor/sensory deficits, alert, normal mood/affect, oriented x 3 ICD10 Worksheet Patient Problems: Problems Problem Status Onset Hypokalemia Acute Hypoxia Acute Pneumonia Acute
[2018-04-11] MEDS: ACETAMINOPHEN 325 MG TAB PO PRN (20:08)
[2018-04-11] MEDS: SENNOSIDES 1 TAB PO SCH ×2 (20:08→20:11)
[2018-04-12] MEDS: IBUPROFEN 200 MG TAB PO PRN ×3 (01:50→18:19)
[2018-04-12] MEDS: traMADol 50 MG TAB PO PRN ×3 (05:48→19:50)
[2018-04-12] MEDS: SENNOSIDES 1 TAB PO SCH ×2 (08:54→20:54)
[2018-04-12] MEDS: ESCITALOPRAM OXALATE 10 MG TAB PO SCH (08:55)
[2018-04-12] MEDS: ACETAMINOPHEN 325 MG TAB PO PRN ×2 (10:29→22:46)
[2018-04-12] MEDS: HYDROCHLOROTHIAZIDE 25 MG TAB PO SCH (11:33)
[2018-04-12] MEDS: LOSARTAN POTASSIUM 50 MG TAB PO SCH ×2 (11:34→20:53)
--- NOTE | 2018-04-12 12:22 | SOAPPROG ---
SOAP Progress Note Assessment/Plan: Assessment: Debility status post hospitalization for Legionella community-acquired pneumonia. * Initial functional independence measure 77 on 04/07/2018. Has had subsequent improvement. Bed mobility requires contact guard assist. Sit to stand requires standby assist with front wheeled walker. Reduced hip mobility significantly affects gait. Has ambulated 50-150 feet with front wheeled walker and cues. Grooming and hygiene standing at the sink with front wheeled walker and standby assist. Upper and lower body dressing with modified independence. * Continue PT and OT to optimize mobility towards discharge home. Legionella pneumonia. She has completed azithromycin IV and then oral. No respiratory symptoms at present. Continue to monitor. Encourage incentive spirometry. Intertriginous candidiasis. Continue nystatin 1 application topical 3 times daily. Urinary incontinence. Improving. Continue bladder training. Timed toileting. Physical Therapy to work on strengthening pelvic floor muscles and Kegel exercises. Severe osteoarthritis bilateral hips. Also has lumbar degenerative joint disease. Seen on MRI in January of 2017. * Continue ibuprofen 600 p.o. 4 times daily p.r.n. pain. Continue tramadol 50 mg q.6 hours p.r.n. pain. Increased tramadol to range of 50-100 mg q.6 hours. * Follow-up with Orthopedics after discharge. It would be in her best interest to optimize mobility and reversed deconditioning as much as possible prior to undergoing surgery. Constipation x2 days. Likely related to tramadol use. Schedule senna 1 twice daily starting 04/11/2018, and added bisacodyl suppository p.r.n. Hypertension, with blood pressure overcorrected. She denies symptoms however. Will decrease amlodipine from 5 mg to 2.5 mg q.day. Continue hydrochlorothiazide 25 mg q.day and losartan 100 mg q.day. Obesity. Dietitian consult. Discussed options for exercise including water exercise. She reports she did that once and enjoyed, but had anxiety about her ability to climb the ladder to exit the pole. 04/12/18 12:17 Subjective: Pain control is improved with p.r.n. Tramadol. Has noted low blood pressures. Otherwise without complaints. Sleeping well, no fevers or chills, no cough or dyspnea. Objective: Vital Signs Temp Pulse Resp BP Pulse Ox 36.4 C 74 18 95/55 L 93 04/12/18 06:11 04/12/18 10:30 04/12/18 06:11 04/12/18 10:30 04/12/18 06:11 Laboratory Results 04/06/18 06:15 04/06/18 06:15 04/11/18 04/12/18 04/13/18 05:59 05:59 05:59 Intake Total 1210 1350 Output Total 150 Balance 1060 1350 Physical Exam - Physical Exam General Appearance: WD/WN, alert, no apparent distress, obese Respiratory: No respiratory distress, No accessory muscle use Skin: normal color, warm/dry Neuro/Psych: no motor/sensory deficits, alert, normal mood/affect, oriented x 3 , abnormal gait (Very little motion at the hips. Walks slow with flexed posture at low back, short steps, with front wheeled walker.) ICD10 Worksheet Patient Problems: Problems Problem Status Onset Hypokalemia Acute Hypoxia Acute Pneumonia Acute
[2018-04-12] MEDS: NYSTATIN POWDER 15 GM BTL TP SCH ×3 (14:04→22:00)
[2018-04-13] MEDS: IBUPROFEN 200 MG TAB PO PRN ×4 (01:26→20:33)
[2018-04-13] MEDS: traMADol 50 MG TAB PO PRN ×4 (04:29→22:55)
[2018-04-13] MEDS: ESCITALOPRAM OXALATE 10 MG TAB PO SCH (08:46)
[2018-04-13] MEDS: HYDROCHLOROTHIAZIDE 25 MG TAB PO SCH (09:10)
[2018-04-13] MEDS: LOSARTAN POTASSIUM 50 MG TAB PO SCH (09:48)
[2018-04-13] MEDS: SENNOSIDES 1 TAB PO SCH ×2 (09:49→21:45)
[2018-04-13] MEDS: NYSTATIN POWDER 15 GM BTL TP SCH ×3 (10:51→21:45)
--- NOTE | 2018-04-13 14:04 | SOAPPROG ---
SOAP Progress Note Assessment/Plan: Assessment: Debility status post hospitalization for Legionella community-acquired pneumonia. * Initial functional independence measure 77 on 04/07/2018. Has had subsequent improvement. Modified independence for bed mobility transfers and ambulation. Reduced hip mobility significantly affects gait. Has ambulated 50-150 feet with front wheeled walker and cues. Grooming and hygiene standing at the sink with front wheeled walker. Upper and lower body dressing with modified independence. Standby assist for bath transfers and bathing. * Advanced to independent in room and on the unit 24 hr today, 04/13/2018. * Continue PT and OT to optimize mobility towards discharge home. Legionella pneumonia. She has completed azithromycin IV and then oral. No respiratory symptoms at present. Continue to monitor. Encourage incentive spirometry. Intertriginous candidiasis. Continue nystatin 1 application topical 3 times daily. Urinary incontinence. Improving. Continue bladder training. Timed toileting. Physical Therapy to work on strengthening pelvic floor muscles and Kegel exercises. Severe osteoarthritis bilateral hips. Also has lumbar degenerative joint disease. Seen on MRI in January of 2017. * Continue ibuprofen 600 p.o. 4 times daily p.r.n. pain. Continue tramadol 50 mg q.6 hours p.r.n. pain. Increased tramadol to range of 50-100 mg q.6 hours. * Follow-up with Orthopedics after discharge. It would be in her best interest to optimize mobility and reversed deconditioning as much as possible prior to undergoing surgery. Constipation x2 days. Likely related to tramadol use. Schedule senna 1 twice daily starting 04/11/2018, and added bisacodyl suppository p.r.n. Hypertension, with blood pressure overcorrected. She denies symptoms however. Was on losartan 50 mg twice daily, amlodipine 5 mg q.day, and hydrochlorothiazide 25 mg q.day. * All antihypertensives have been held x2 days. * Will initiate losartan at 25 mg q.day starting 04/14/2018. Obesity. Dietitian consult. Discussed options for exercise including water exercise. She reports she did that once and enjoyed, but had anxiety about her ability to climb the ladder to exit the pole. DISPOSITION: Discharge home tomorrow, 04/14/2018. Will have home health HOSPICE CONSULTANT, PT and OT. FOLLOW-UP: Primary care provider is Dr. Yumiko Pena. She is advised to also follow up with an orthopedic surgeon to consider bilateral hip replacements. 04/13/18 14:00 Subjective: No complaints. Somewhat hesitant to be discharged home tomorrow. Was considering discharge to SNF but she does not meet criteria. Concerned about continuing tramadol and what hypertensive medication to take. Objective: Vital Signs Temp Pulse Resp BP Pulse Ox 37.1 C 67 16 107/66 94 04/12/18 20:00 04/13/18 08:00 04/13/18 08:00 04/13/18 09:48 04/13/18 08:00 Laboratory Results 04/06/18 06:15 04/06/18 06:15 04/12/18 04/13/18 04/14/18 05:59 05:59 05:59 Intake Total 1350 1500 Balance 1350 1500 Physical Exam - Physical Exam General Appearance: WD/WN, alert, no apparent distress, obese Respiratory: No respiratory distress, No accessory muscle use Skin: normal color, warm/dry Neuro/Psych: alert, normal mood/affect, oriented x 3 ICD10 Worksheet Patient Problems: Problems Problem Status Onset Hypokalemia Acute Hypoxia Acute Pneumonia Acute
[2018-04-13] MEDS: ACETAMINOPHEN 325 MG TAB PO PRN (14:23)
[2018-04-14] MEDS: traMADol 50 MG TAB PO PRN ×2 (05:01→11:23)
[2018-04-14 06:47] VITALS: BP 107/60
[2018-04-14] MEDS: ESCITALOPRAM OXALATE 10 MG TAB PO SCH (08:39)
[2018-04-14] MEDS: IBUPROFEN 200 MG TAB PO PRN (08:39)
[2018-04-14] MEDS ORDERED: LOSARTAN POTASSIUM 50 MG TAB PO SCH (09:00)
[2018-04-14] MEDS: NYSTATIN POWDER 15 GM BTL TP SCH (09:38)
[2018-04-14] MEDS: SENNOSIDES 1 TAB PO SCH (09:39)
[2018-04-14] MEDS: ACETAMINOPHEN 325 MG TAB PO PRN (14:39)
--- NOTE | 2018-04-14 18:36 | GDS ---
ADMISSION DIAGNOSIS: Debility status post hospitalization for Legionella pneumonia with severe bilateral hip osteoarthritis. DISCHARGE DIAGNOSIS: Debility status post hospitalization for Legionella pneumonia with severe bilateral hip osteoarthritis. OTHER DISCHARGE DIAGNOSES: Hypertension. COMPLICATIONS: There were none. CONSULTATIONS: There were none. PROCEDURES: There were none. HISTORY/HOSPITAL COURSE: This patient was admitted from [facility]. She had presented there on 04/10/2018, with hypoxia. She was diagnosed with Legionella pneumonia and treated with azithromycin. She was soon medically stabilized but had deconditioning and debility and so was transferred to inpatient rehabilitation for continued care. She did well in rehabilitation. Her initial functional independence measure was 77 on 04/07/2018. This was consistent with penitentiary level of care needing assistance with multiple aspects of mobility and activities of daily living. She had considerable improvement. She demonstrated modified independence for bed mobility, transfers and ambulation. She had reduced hip mobility which significantly affected her gait. However, she is able to ambulate 50-100 feet with a front-wheeled walker and cues. She was able to do grooming and hygiene standing at the sink with a front-wheeled walker. Upper and lower body dressing were accomplished with modified independence. She continued to require standby assist for bath transfers, and for bathing. She was advanced to independent in her room and on the rehabilitation unit 24 hours a day starting 04/13/2018. Regarding Legionella pneumonia, she completed oral azithromycin and had no residual respiratory symptoms. Regarding osteoarthritis as well as lumbar degenerative joint disease, she was treated with ibuprofen as well as tramadol, which gave her sufficient pain relief for improving function. She was advised to follow up with Orthopedics after discharge to consider bilateral hip replacements. She had hypertension and initially was on losartan 50 mg twice a day, amlodipine 5 mg daily, and hydrochlorothiazide 25 mg daily. Her blood pressure was running low and all antihypertensives were held progressively through her stay after tapering them. On the day of discharge on no antihypertensive medications, her blood pressure was 107/60. She was advised to continue to monitor her blood pressure and she was discharged with a prescription for losartan 25 mg at bedtime, which she is to resume should her blood pressure be above 140/90. The etiology of her much improved blood pressure was unclear. Possibly, her diet is different on the inpatient rehabilitation unit. Additionally, she had some weight loss through her hospitalization and rehabilitation stay. On admission to the hospital she weighed 117.9 kg and on , she weighed 113.7 kg. DISCHARGE PLAN: Discharge disposition is home. Activity ad rose. Diet is regular. HOME SERVICES: She will have a [employer]IC[employer] bath aide twice a week and she will have continuing physical and occupational therapy. MEDICATIONS UPON DISCHARGE: 1. Acetaminophen 650 mg p.o. q.4 hours p.r.n. 2. Escitalopram 20 mg p.o. daily. 3. Losartan 25 mg p.o. daily should her blood pressure rise to above 140/90. 4. Senna 1 p.o. twice daily. 5. Tramadol 50 mg p.o. q.6 hours p.r.n. ALLERGIES: There are no known drug allergies. ISSUES TO BE ADDRESSED AT FOLLOW UP: 1. Functional status. She is to continue PT and OT and can follow up with her primary care provider. 2. Hypertension with low blood pressures on the unit. She is to continue monitoring her blood pressure. She was prescribed an automatic blood pressure cuff and she can follow up with her primary care provider. 3. Severe bilateral hip osteoarthritis. She was advised to consult with an orthopedic surgeon regarding this issue. She can continue tramadol as well as acetaminophen for pain control. Greater than 30 minutes was spent on this discharge summary including medication reconciliation, coordination of care, and counseling patient. /[id number]/[id number]
--- NOTE | 2018-04-17 12:52 | PDOREHIP ---
Admission [facility] - Admission - 3 Day Assessment Period Admission Date/Day 1: 04/05/18 Day 2: 04/06/18 Day 3: 04/07/18 - Active Diagnoses Comorbidities and Co-existing Conditions at Admission: [id number]. None of the Above Discharge [facility] - Discharge - 3 Day Assessment Period 2 Days Prior to Anticipated Discharge Date: 04/12/18 1 Day Prior to Anticipated Discharge Date: 04/13/18 Anticipated Discharge Date: 04/14/18 - Discharge Skin Conditions Unhealed Pressure Ulcer (1 or more/Stage 1 or >)-Discharge: 0. No # Stage 1 Pressure Ulcers-Discharge: 0 # Stage 2 Pressure Ulcers-Discharge: 0 # of These Stage 2 Pressure Ulcers Present on Admission: 0 # Stage 3 Pressure Ulcers-Discharge: 0 # of These Stage 3 Pressure Ulcers Present on Admission: 0 # Stage 4 Pressure Ulcers-Discharge: 0 # of These Stage 4 Pressure Ulcers Present on Admission: 0 # Unstageable Pressure Ulcers (Non-remove Dress)-Discharge: 0 # These Unstageable Pressure Ulcers (NRD)-Present on Admit: 0 # Unstageable Pressure Ulcers (Slough/Eschar)-Discharge: 0 # These Unstageable Pressure Ulcers(Slough) Present on Admit: 0 # Unstageable Pressure Ulcers (Deep Tissue Injury)-Discharge: 0 # These Unstageable Pressure Ulcers (DTI) Present on Admit: 0
== END 2018-04-14 14:51 | disposition home health service (06) | DRG 860 ==
LOC: BREH 14:42
PROVIDERS: ADMIT Internal Medicine; ATTEND Internal Medicine
DX: R53.81 Other malaise (principal); J15.8 Pneumonia due to other specified bacteria; J96.01 Acute respiratory failure with hypoxia; B37.2 Candidiasis of skin and nail; R32 Unspecified urinary incontinence; K59.03 Drug induced constipation; T40.4X5A Adverse effect of other synthetic narcotics, initial encounter; M47.896 Other spondylosis, lumbar region; M16.0 Bilateral primary osteoarthritis of hip; I10 Essential (primary) hypertension; E66.01 Morbid (severe) obesity due to excess calories; Z68.39 Body mass index [BMI] 39.0-39.9, adult
CPT/HCPCS: 97110-GO; 97110-GP; 97116-GP; 97140-GP; 97161-GP; 97166-GO; 97530-GO; 97530-GP; 97535-GO; G0515-GO; J1580

== ENCOUNTER 2018-08-19 17:07 | Emergency (ER) | payer MEDICAID ==
--- NOTE | 2018-08-19 17:22 | EDPHY ---
H & P Stated Complaint: non traumatic L hip pain x 2 days, R total hip sx 08/11/18 Time Seen by Provider: 08/19/18 17:21 - Personal History Tetanus Vaccine Date: 2011 - Medical/Surgical History Hx Asthma: No Hx Chronic Respiratory Disease: No Hx Diabetes: No Hx Cardiac Disease: No Hx Renal Disease: No Hx Cirrhosis: No Hx Alcoholism: No Hx HIV/AIDS: No Hx Splenectomy or Spleen Trauma: No Other PMH: HTN, ANXIETY, DEPRESSION, C-SECT,OSTEOARTHRITIS, OBESITY, R total Hip x 08/11/18 - Social History Smoking Status: Never smoked Constitutional: Initial Vital Signs Temperature (C) 37.0 C 08/19/18 17:12 Heart Rate 76 08/19/18 17:12 Respiratory Rate 16 08/19/18 17:12 Blood Pressure 123/47 H 08/19/18 17:12 O2 Sat (%) 97 08/19/18 17:12 O2 Delivery Mode Room Air Allergies/Adverse Reactions: No Known Allergies Allergy (Verified 03/31/18 15:39) Home Medications: Medication Instructions Recorded Cetirizine [ZyrTEC 10 mg (*)] 10 mg PO DAILY PRN 03/31/18 Ibuprofen [Motrin (*)] 600 mg PO QID PRN 03/31/18 Acetaminophen [Tylenol 325mg (*)] 650 mg PO Q4HRS PRN tab 04/13/18 Escitalopram Oxalate [Lexapro] 20 mg PO DAILY #30 tablet 04/13/18 Losartan Potassium [Cozaar 50 mg 25 mg PO DAILY #30 tab 04/13/18 (*)] Cyclobenzaprine 08/19/18 Dilaudid 08/19/18 HYDROmorphone HCL [Dilaudid 2 mg 2 mg PO Q4H PRN #20 tab 08/19/18 (*)] Medical Decision Making - Diagnostics Imaging Results: Imaging Impressions Pelvis CT 08/19/18 17:22 Impression: 1. Severe degenerative osteoarthritic changes are seen involving the left hip with no acute osseous abnormality identified. 2. See above report for additional findings. Results called and discussed with Carlos Hidalgo MD on 08/19/2018 at 18:24. Imaging: Discussed imaging studies w/ manager call center Radiologist, I viewed and interpreted images myself ED Course/Re-evaluation: CHIEF COMPLAINT: Left hip pain HISTORY OF PRESENT ILLNESS: The patient is a 57 y/o female with a history of a recent right total hip replacement complaining of left hip pain onset 2 days ago. The patient had bilateral hip pain, worse on the right, so she had a total right hip replacement on 08/11/18, 1 week ago, at [facility]. Starting 2 days ago she developed left hip pain. Due to this pain she has been unable to perform PT. She is taking Aspirin as directed for anticoagulation. No fever, headache, body aches, lightheadedness, chest pain, heart palpitations, shortness of breath, cough, abdominal pain, urinary or bowel complaints, numbness, paresthesias. REVIEW OF SYSTEMS: A comprehensive 10 system review of systems is otherwise negative aside from elements mentioned in the history of present illness and medical decision making. PHYSICAL EXAM: HR, BP, O2 Sat, RR. Temp noted General Appearance: Alert, well hydrated, appropriate, and non-toxic appearing. Head: Atraumatic without scalp tenderness or obvious injury Eyes: Pupils equal, round, reactive to light and accommodation, EOMI, no trauma , no injection. Ears: Clear bilaterally, no perforation, normal landmarks Nose: Atraumatic, no rhinorrhea, clear. Throat: There is no erythema or exudates, no lesions, normal tonsils, mucus membranes moist. Neck: Supple, 2+ carotid upstroke, nontender, no lymphadenopathy. Respiratory: No retractions, no distress, no wheezes, and no accessory muscle use. Lungs are clear to auscultation bilaterally. Cardiovascular: Regular rate and rhythm, no murmurs, rubs, or gallops. Bilateral carotid, radial, dorsalis pedis, and posterior tibial pulses intact. Good capillary refill all extremities. Gastrointestinal: Abdomen is soft, nontender, non-distended, no masses, no rebound, no guarding, no peritoneal signs. Musculoskeletal: Normal active ROM of all extremities, atraumatic. Neurological: Alert, appropriate, and interactive. The patient has normal DTRs and non-focal cranial nerves, motor, sensory, and cerebellar exam. Skin: No rashes, good turgor, no nodules on palpation. Past medical history: Hypertension, anxiety, depression, osteoarthritis Past surgical history: Right total hip replacement (08/11/18) Family history: Denies Social history: Sister at bedside, employed DIAGNOSTICS/PROCEDURES/CRITICAL CARE TIME: Left hip CT: Severe degenerative osteoarthritic changes are seen involving the left hip with no acute osseous abnormality identified. DIFFERENTIAL DIAGNOSIS: The differential diagnosis for the patient's hip pain included but was not limited to osteoarthritis, fracture, ligamentous injury, contusion, muscular strain. MEDICAL DECISION MAKING: The patient is a 57 y/o female with a history of a recent right total hip replacement presenting left hip pain onset 2 days ago. The patient had bilateral hip pain, worse on the right, so she had a total right hip replacement on 08/11/18, 1 week ago, at [facility]. Starting 2 days ago she developed left hip pain. On exam she has minimal amount of post-surgery swelling of her right hip. There is no evidence of a DVT. She does have limited ROM of her left hip secondary to pain. Hip CT ordered. 1822: I spoke with Dr. Aragon, radiologist, regarding patient's hip CT. Patient no longer has space in the joint or a round femoral head. 183: Reassessed patient and discussed imaging findings. I have advised her to follow up with her orthopedic surgeon for another hip surgery. Patient is also out of her Dilaudid, I will write her a new prescription for this. Return precautions provided; patient is comfortable with this plan. Departure - Departure Disposition: Home, Routine, Self-Care Clinical Impression: Osteoarthritis of left hip Qualifiers: Osteoarthritis type: primary Qualified Code(s): M16.12 - Unilateral primary osteoarthritis, left hip Condition: Good Instructions: Osteoarthritis (ED), Hip Pain (ED) Additional Instructions: 1. Follow up with an orthopedic surgeon within one week. 2. Return to the emergency department for worsening pain, swelling, numbness, weakness or other concerns. Referrals: Rylee Peres MD [Primary Care Provider] - As per Instructions Smooth Lepe MD [Medical Doctor] - As per Instructions Prescriptions: HYDROmorphone HCL [Dilaudid 2 mg (*)] 2 mg PO Q4H PRN #20 tab PRN Reason: Pain, Mild Report Scribed for: Carlos Hidalgo Report Scribed by: Mee Yu Date of Report: 08/19/18 Time of Report: 17:26
[2018-08-19 18:46] VITALS: BP 122/84
== END 2018-08-19 18:47 | disposition home or self-care (01) ==
DX: M16.12 Unilateral primary osteoarthritis, left hip (principal); M25.552 Pain in left hip; I10 Essential (primary) hypertension; Z96.641 Presence of right artificial hip joint